=== PATIENT | male | born 1960 | race Caucasian/White ===

== ENCOUNTER 2022-05-05 10:25 | Emergency (ER) | payer OTHER, SELFPAY ==
[2022-05-05 10:33] VITALS: BP 147/88; PULSE 71; RESP 18; TEMP 36.2; O2SAT 95; BMI 29.4
--- NOTE | 2022-05-05 11:21 | ED_ITS ---
HPI - Wound/Laceration General Chief Complaint: Laceration/Wound Stated Complaint: Lac side of left hand Time Seen by Provider: 05/05/22 11:05 History of Present Illness HPI narrative: This 62-year-old male comes in with a laceration to his left hand. 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 He was making breakfast with a new set of knives in accidentally cut into his left hand. He has a 1.5 cm linear laceration over the lateral aspect of the left hand at the MP joint of the little finger. He is taking Coumadin because he has a mechanical heart valve. The bleeding is persistent. His last tetanus was 2 years ago. Related Data Previous Rx's Medication Instructions Recorded warfarin 6 mg tablet 6 mg PO QDAY #60 tabs 04/19/22 Allergies Allergy/AdvReac Type Severity Reaction Status Date / Time Sulfa (Sulfonamide AdvReac Intermediate Verified 05/05/22 10:38 Antibiotics) Review of Systems Status of ROS: Reports: 10 or more systems reviewed and unremarkable except as noted in History and below Narrative: Constitutional: No fevers, no weight gain or loss. Eyes: No discharge. No vision changes. HENT: No congestion, no sore throat, no ear pain. Cardiovascular: No chest pain, no palpitations. Respiratory: No shortness of breath, no wheezes, no cough. Gastrointestinal: No abdominal pain, no vomiting, no diarrhea. Genitourinary: No dysuria, no hematuria. Musculoskeletal: Normal range of motion. Left hand laceration as described above. Skin: No rashes, no pruritis. Neurological: No dizziness, weakness, sensory change, speech change. Endo/Heme/Allergies: No bruising or bleeding. No polydipsia. Pysch: no suicidality, no anxiety, no insomnia. All other systems reviewed and are negative. PFSH PFSH Social History Smoking Status: Never smoker How often do you have a drink containing alcohol: monthly or less AUDIT-C Alcohol total score: 1 Non-prescribed substance use: denies use service: No Exam Narrative: Exam Narrative: Constitutional: Well-developed, well-nourished, no acute distress. HEENT: Normocephalic, atraumatic. Neck: Normal range of motion. Nontender. Supple. Heart: Intact distal pulses. Lungs: No chest discomfort. No wheezes, rhonchi, or rales. Abdomen: Nontender. Back: Normal range of motion. Extremities: Normal range of motion. 1.5 cm linear laceration near the MP joint of the left little finger. Skin: Intact. No rash. Warm. No erythema or pallor. Neurologic: No altered sensation. No weakness. Alert and oriented. Psychiatric: No suicidality. No anxiety or depression. No insomnia. Nursing notes and vitals signs are reviewed. Const: Vital Signs, click to edit/add: Vital Signs - 24 hr 05/05/22 10:33 Temperature 97.2 F L Pulse Rate [Pulse Oximeter] 71 Respiratory Rate 18 Blood Pressure [Ri ght Upper Arm] 147/88 H Pulse Oximetry 95 Oxygen Delivery Me thod Room Air Course Vital Signs Vital signs: Initial Vital Signs Temperature 97.2 F L 05/05/22 10:33 Temperature Source Temporal Artery Scan 05/05/22 10:33 Pulse Rate 71 05/05/22 10:33 Pulse Rhythm 05/05/22 10:33 Pulse Strength 0+ Absent 05/05/22 10:33 Respiratory Rate 18 05/05/22 10:33 Blood Pressure 147/88 H 05/05/22 10:33 Blood Pressure Mean 107 05/05/22 10:33 Blood Pressure Position Sitting 05/05/22 10:33 Pulse Oximetry 95 05/05/22 10:33 Oxygen Delivery Method 05/05/22 10:33 Vital Signs Temperature 97.2 F L 05/05/22 10:33 Pulse Rate 71 05/05/22 10:33 Respiratory Rate 18 05/05/22 10:33 Blood Pressure 147/88 H 05/05/22 10:33 Pulse Oximetry 95 05/05/22 10:33 Oxygen Delivery Method 05/05/22 10:33 Temperature 97.2 F L 05/05/22 10:33 Pulse Rate 71 05/05/22 10:33 Respiratory Rate 18 05/05/22 10:33 Blood Pressure 147/88 H 05/05/22 10:33 Pulse Oximetry 95 05/05/22 10:33 Oxygen Delivery Method 05/05/22 10:33 MDM - Wound/Laceration MDM Narrative Medical decision making narrative: This patient continues to ooze a little bit of blood from this wound as he is on Coumadin with a more aggressive INR goal due to his mechanical heart valve. It seems best to repair this wound with sutures therefore. After receiving anesthesia with 1% lidocaine with epinephrine, 3 sutures were placed using 4.0 Ethilon suture. These were placed in interrupted fashion and when completed the bleeding has stopped. Instructions were given regarding wound care and the need for suture removal in 7-10 days. 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 Follow up for suture removal in 7-10 days. Return if worsening. Prescriptions: No Action warfarin 6 mg tablet 6 mg PO QDAY Qty: 60 0RF Protocol: Dose Management Condition: Tuesday Dose/Route: 6 % Instruction: 1 x 6 % tablet Condition: Tuesday Dose/Route: 6 % Instruction: 1 x 6 % tablet Condition: Tuesday Dose/Route: 9 % Instruction: 1.5 x 6 % tablets Condition: Tuesday Dose/Route: 6 % Instruction: 1 x 6 % tablet Condition: Dose/Route: 6 % Instruction: 1 x 6 % tablet Condition: Tuesday Dose/Route: 6 % Instruction: 1 x 6 % tablet Condition: Tuesday Dose/Route: 6 % Instruction: 1 x 6 % tablet Protocol Text: Adjustment Start Date: 04/08/22 INR Value: 2.5 INR Date: 04/06/22 Recheck Date: 05/08/22 Follow Up/Referrals: Kumar Raymond MD [Primary Care Provider] - Stand Alone Forms: PresentationTubeth Info Instructions
== END 2022-05-05 11:30 | disposition home or self-care (01) ==
PROVIDERS: Emergency Provider Emergency Medicine Emergency Medical Services; PCP Family Medicine
DX: S61.217A Laceration without foreign body of left little finger without damage to nail, initial encounter (principal); W26.0XXA Contact with knife, initial encounter
CPT/HCPCS: 12001; 99283; 99284

== ENCOUNTER 2022-07-20 16:14 | Outpatient (CLI) | payer MEDICAID, SELFPAY ==
--- OUTSIDE RECORDS SUMMARY | 2022-07-20 14:19 | XMS_ITS | Clinical Summary ---
:1960 Author Organization [facility] [place] [address] Care Team Providers Name Role Phone Kumar Raymond MD Primary Care Provider Allergies Active Allergy Reactions Severity Noted Date Comments Cephalexin Rash 02/02/2013 Atorvastatin Arthralgia 11/19/2011 Paroxetine Tremors 07/08/2014 Sulfa (Sulfonamide Antibiotics) Hives 6 Sertraline Diaphoresis 07/08/2014 night sweats Medications Medication Sig Dispensed Refills Start Date End Date Status aspirin (ECOTRIN) 81 Take 1 tablet by 0 08/04/2015 Active mg enteric coated mouth once daily with tablet a meal. lovastatin (MEVACOR) Take 1 tablet by 90 tablet 3 04/08/2016 Active 40 mg mouth at bedtime. tabletIndications: Mixed hyperlipidemia LORazepam (ATIVAN) 1 TAKE 1 TABLET BY 20 tablet 0 05/13/2016 Active mg MOUTH EVERY 6 HOURS tabletIndications: IF NEEDED. Anxiety PARoxetine (PAXIL) Take 1 tablet by 90 tablet 3 06/14/2016 Active 40 mg mouth every morning. tabletIndications: Anxiety lisinopril TAKE ONE TABLET BY 60 tablet 0 11/18/2016 Active (PRINIVIL; ZESTRIL) MOUTH TWICE DAILY 20 mg tabletIndications: Essential hypertension with goal blood pressure less than 140/90 testosterone INJECT 1 ML 5 mL 3 03/07/2017 Acti ve enanthate INTRAMUSCULARLY ONCE (DELATESTRYL) 200 EVERY 2 WEEKS mg/mL injectionIndications : Low testosterone Active Problems Problem Noted Date Anxiety 04/08/2016 Alcohol abuse, in remission 04/08/2016 Dysthymia 01/26/2016 OCD (obsessive compulsive disorder) 03/10/2015 Chronic otitis media of both ears 03/10/2015 Adenomatous colon polyp 10/04/2014 Overview: Colonoscopy 09/2014 polyp repeat in 5 yea rs Fatty liver 08/02/2014 Coital headache 07/14/2012 Bicuspid aortic valve 07/14/2012 Low testosterone 11/19/2011 Vitamin D deficiency 11/19/2011 Prediabetes 11/19/2011 Osteoarthritis 11/05/2011 Unspecified essential hypertension 08/18/2007 Presbyopia 09/30/2006 Vitreous degeneration 09/30/2006 Other and unspecified hyperlipidemia 12/03/2005 Resolved Problems Problem Noted Date Resolved Date Alcohol abuse 03/10/2015 04/08/2016 Chest pain, unspecified 07/14/2012 01/22/2014 Headache(784.0) 07/14/2012 07/14/2012 Overview: Post-coital headaches noted. Abnormal tympanic membrane 11/05/2011 03/31/2015 Anxiety state, unspecified 12/03/2005 11/05/2011 Immunizations Name Administration Dates Next Due Influenza, IIV3 (Age >=3 years) 09/06/2003 Influenza, IIV4 08/04/2015, 09/02/2014 Tdap 09/17/2010 Family History Medical History Relation Name Comments Good Health Brother 2 Diabetes Father Cancer Maternal Grandmother ovarian. Genetic Mother Hypertension Mother Other Mother migraine Thyroid Disease Mother Good Health Sister 2 Relation Name Status Comments Brother 1 Alive Brother 2 Father Alive Maternal Grandmother Mother Alive Sister 1 Alive Sister 2 Social History Tobacco Use Types Packs/Day Years Used Date Former Smoker Cigarettes 1.5 20 Quit: 06/12/19 91 Smokeless Tobacco: Never Used Tobacco Cessation: Counseling Given: Yes Alcohol Use Standard Drinks/Week Comments No 30 (1 standard drink = 0.6 oz pure alcoh ol) Quit drinking 4 weeks ago. Alcohol Habits Answer Date Recorded How often do you have a drink containing Not asked alcohol? How many drinks containing alcohol do you Not asked have on a typical day when you are drinking? How often do you have six or more drinks on Not asked one occasion? Comment: Quit drinking 4 weeks ago. 09/02/2014 Sex Assigned at Date Recorded Not on file Obstetrics History Last Filed Vital Signs Vital Sign Reading Time Taken Comments Blood Pressure 106/76 04/08/2016 10:50 AM manual cuff CDT Pulse 62 04/08/2016 10:50 AM CDT Temperature 37.2 ??C (98.9 ??F) 04/08/2016 10:50 AM CDT Respiratory Rate 16 01/02/2016 11:13 AM CDT Oxygen Saturation 99% 04/08/2016 10:50 AM CDT Inhaled Oxygen Concentration - - Weight 87.8 kg (193 lb 9.6 oz) 04/08/2016 10:50 AM CDT Height 178.4 cm (5' 10.25) 04/08/2016 10:50 AM CDT Body Mass Index 27.58 04/08/2016 10:50 AM CDT Plan of Treatment Health Maintenance Due Date Last Done Comments COVID-19 vaccine series (#1) 1960 Hepatitis C screening for age 0704/02/1977 18-79 Zoster (shingles) series for age 0704/02/2009 50+ (1 of 2) Depression screening for age 12+ 10/13/2016 10/13/2015, , 09/22/2015 BMI (ht and wt on same day) for 04/08/2017 04/08/2016 age 18+ Colonoscopy through age 75 10/04/2019 10/04/2014, 5, 09/17/2010 Tetanus booster 09/17/2020 09/17/2010, 09/17/2010 Lipids for age 45-75 04/08/2021 04/08/2016, 03/22/2015, 01/22/2014, Additional history exists Influenza for age 50-64 05/13/2022 08/04/2015, 08/04/2015, 09/02/2014, Additional history exists Tdap Completed 09/17/2010 Results Not on filefrom Last 3 Months Insurance Payer Benefit Plan / Subscriber ID Effective Dates Phone Addre ss Type Group MEDICA MEDICA CHOICE [id number] 2018-Present [address] [address] [place] [address] [facility] [id number] 2017-Present [address] [place] [address] [phone] [id number] (Work) [employer] [facility] Employer 09/12/2000 ATTN A /P ADVANTAGE [employer] (Home) [address] [place] [address] [facility] Employer 09/12/2000 [facility] [employer] (Home) [address] [phone] [address] (Work) [facility] [place] [address] Advance Directives Latest Code Status on File Code Status Date Activated Date Inactivated Comments Full Code 06/24/2014 7:19 AM 06/24/2014 5:00 PM Care Teams Per Diem Registered Nurse Relationship Specialty Start Date End Date Kumar Raymond MD PCP - General Family Practice 11/17/171999 [place] [phone]
[2022-07-20 15:20] LABS: Albumin* 4.8 g/dL (3.3-5.0); Chloride* 103 mmol/L (96-114); Potassium* 4.5 mmol/L (3.6-5.1); Sodium* 138 mmol/L (135-149)
[2022-07-20 15:23] LABS: Alanine Aminotransferase* 26 U/L (4-50); Alkaline Phosphatase* 79 U/L (40-150); Aspartate Amino Transferase* 28 U/L (12-35); Bilirubin Total* 0.6 mg/dL (0.1-1.5); Blood Urea Nitrogen* 13 mg/dL (7-30); Calcium* 9.1 mg/dL (8.4-10.6); Carbon Dioxide* 26 mmol/L (20-32); Estimated Glomerular Filt Rate 85 ml/min; Glucose* 90 mg/dL (60-115); HDL Cholesterol* 51 mg/dL (>=40); Total Protein* 7.3 g/dL (6.0-8.3); Triglycerides* 209 mg/dL (40-149)
[2022-07-20 15:24] LABS: LDL Cholesterol Calculated 232 mg/dL (<100)
[2022-07-20 15:54] LABS: PSA Screen* 1.85 ng/mL (0.10-4.00)
[2022-07-20 16:05] LABS: Cholesterol* 346 mg/dL (90-199)
[2022-07-22 23:28] LABS: Sex Hormone Binding Globulin 45 nmol/L (19-76); Testosterone, Adult Male 310 ng/dL (300-720); Testosterone, Free Calculation 47 pg/mL (47-244); Testosterone, Percentage Free 1.5 % (1.6-2.9)
== END 2022-07-20 16:15 | disposition home or self-care (01) ==
PROVIDERS: PCP Family Medicine; Visit Provider Family Medicine
DX: E78.5 Hyperlipidemia, unspecified (principal); Z12.5 Encounter for screening for malignant neoplasm of prostate; Z13.9 Encounter for screening, unspecified
CPT/HCPCS: 80053; 80061; 84153; 84270; 84402; 84403

== ENCOUNTER 2023-06-26 18:23 | Emergency (ER) | payer MEDICAID, SELFPAY ==
[2023-06-26 18:43] VITALS: BP 147/77; PULSE 76; RESP 16; TEMP 36.9; O2SAT 95; BMI 31.6
--- NOTE | 2023-06-26 18:50 | CRLHL7_ITS ---
For Patients: As a result of the Century Cures Act, medical imaging exams and procedure reports are released immediately into your electronic medical record. You may view this report before your referring provider. If you have questions, please contact your health care provider. Indication: Fall Technique: Noncontrast head CT Comparison: Head CT 03/15/2021 Findings: Axial noncontrast images through the brain parenchyma demonstrates no acute intracranial hemorrhage or mass. No midline shift no abnormal extra-axial air or fluid collections are seen Skull and scalp are unremarkable. Impression: No acute intracranial hemorrhage or mass. Please note that all CT scans at this facility use dose modulation, iterative reconstruction, and/or weight-based dosing when appropriate to reduce radiation dose to as low as reasonably achievable. Dictated by Alyse Willis MD @ 06/26/2023 7:38:27 PM (Electronically Signed)
--- NOTE | 2023-06-26 19:50 | ED.GENADULT ---
HPI - General Adult General Chief complaint: Head Injury/Pain Stated complaint: head scan needed Time Seen by Provider: 06/26/23 18:43 History of Present Illness HPI narrative: 63-year-old male presenting today after slamming his head against an open car door about 9 hours ago. Patient is on Coumadin and he is quite concerned about the possibility of a head bleed. He states that his neck was sore after doing this as well. He has no difficulty moving his neck. He denies any changes in his vision or ringing in his ears. No slurred speech or neurologic deficits. No tingling of the upper extremities. He does have a very mild headache located at the top of his head where he bumped it. Does not have a diffuse headache. Related Data Previous Rx's Medication Instructions Recorded amitriptyline 10 mg tablet 20 mg (2 x 10 mg) PO .Bedtime #180 08/30/22 tabs bupropion HCl 150 mg 24 hr tablet, 150 mg PO DAILY #90 tabs 08/30/22 extended release celecoxib 200 mg capsule 200 mg PO QDAY #90 caps 08/30/22 fluoxetine 40 mg capsule 40 mg PO QAM #90 caps 08/30/22 ketoconazole 2 % topical cream 1 applic topical QDAY #60 grams 08/30/22 rosuvastatin 5 mg tablet 5 mg PO QDAY #90 tabs 08/30/22 warfarin 1 mg tablet 3 mg PO QWEEK #36 tabs 09/07/22 syringe with needle, safety 3 mL #100 ea 10/15/22 22 gauge x 1 1/2 (BD Integra Syringe) warfarin 6 mg tablet 6 mg PO QDAY #90 tabs 05/05/23 doxycycline monohydrate 100 mg 200 mg (2 x 100 mg) PO ONCE #2 caps 05/26/23 capsule testosterone enanthate 200 mg/mL 300 mg (1.5 mL) IM .Once a month 06/23/23 intramuscular oil #5 mL Allergies Allergy/AdvReac Type Severity Reaction Status Date / Time atorvastatin Allergy Mild Verified 05/26/23 17:52 sertraline Allergy Mild Anxiety Verified 05/26/23 17:52 cephalexin Allergy Unknown Unknown Verified 05/26/23 17:52 lisinopril Allergy Unknown Cough Verified 05/26/23 17:52 Sulfa (Sulfonamide AdvReac Intermediate Verified 05/26/23 17:52 Antibiotics) Review of Systems Status of ROS: Reports: 10 or more systems reviewed and unremarkable except as noted in History and below [facility] Medical History History of squamous cell carcinoma of skin ?Z85.828 - Personal history of other malignant neoplasm of skin (ICD-10) Encounter for screening for malignant neoplasm of prostate ?Z12.5 - Encounter for screening for malignant neoplasm of prostate (ICD-10) Surgical History History of placement of ear tubes ?Z96.22 - Myringotomy tube(s) status (ICD-10) History of cholecystectomy ?Z90.49 - Acquired absence of other specified parts of digestive tract (ICD-10) Social History Smoking Status: Former smoker How often do you have a drink containing alcohol: monthly or less AUDIT-C Alcohol total score: 1 Non-prescribed substance use: denies use Little interest or pleasure in doing things: more than half the days Feeling down, depressed, or hopeless: several days service: No Exam Narrative: Exam Narrative: Well-nourished well-developed patient in no acute distress. Alert and oriented x3. Answers questions appropriately. Mood and affect are appropriate. Thoughts are goal oriented and rational. No tangential or magical thinking noted. Patient speaks in full sentences without needing to catch his breath. HEENT: Normocephalic atraumatic. There is no evidence of trauma to the top of the scalp. Pupils are equally round reactive to light. Extraocular muscles are intact. Conjunctivae are moist without any icterus noted. Moist mucous membranes. Neck is soft without discomfort to palpation of the cervical spine. He has full range of motion flexion, extension, side way bending or rotation. Skin: Well perfused without any obvious rashes. Strength is 5/5 of the upper and lower extremities. Cranial nerves 3-12 are normal. There is no nystagmus either horizontally or vertically. Gait is normal. Const: Vital Signs, click to edit/add: Vital Signs - 24 hr 06/26/23 18:43 Temperature 98.4 F Pulse Rate [Pulse Oximeter] 76 Respiratory Rate 16 Blood Pressure [Ri ght Upper Arm] 147/77 H Pulse Oximetry 95 Oxygen Delivery Me thod Room Air Course Course ED Course: Head CT was without abnormality. Vital Signs Vital signs: Initial Vital Signs Temperature 98.4 F 06/26/23 18:43 Temperature Source Temporal Artery Scan 06/26/23 18:43 Pulse Rate 76 06/26/23 18:43 Respiratory Rate 16 06/26/23 18:43 Blood Pressure 147/77 H 06/26/23 18:43 Blood Pressure Mean 100 06/26/23 18:43 Blood Pressure Position Sitting 06/26/23 18:43 Pulse Oximetry 95 06/26/23 18:43 Oxygen Delivery Method Room Air 06/26/23 18:43 Vital Signs Temperature 98.4 F 06/26/23 18:43 Pulse Rate 76 06/26/23 18:43 Respiratory Rate 16 06/26/23 18:43 Blood Pressure 147/77 H 06/26/23 18:43 Pulse Oximetry 95 06/26/23 18:43 Oxygen Delivery Method Room Air 06/26/23 18:43 Temperature 98.4 F 06/26/23 18:43 Pulse Rate 76 06/26/23 18:43 Respiratory Rate 16 06/26/23 18:43 Blood Pressure 147/77 H 06/26/23 18:43 Pulse Oximetry 95 06/26/23 18:43 Oxygen Delivery Method Room Air 06/26/23 18:43 Medical Decision Making MDM Narrative Medical decision making narrative: 63-year-old male contusion to the head. We discussed symptomatic treatment reasons for follow-up. Imaging Data CT scan - head: Attestation: I have reviewed the pertinent imaging results. Radiologist's impression: Noncontrast head CT Comparison: Head CT 03/15/2021 Findings: Axial noncontrast images through the brain parenchyma demonstrates no acute intracranial hemorrhage or mass. No midline shift no abnormal extra-axial air or fluid collections are seen Skull and scalp are unremarkable. Impression: No acute intracranial hemorrhage or mass. Discharge Plan Discharge Clinical Impression: Contusion of head Patient Disposition: Home, Self-Care Condition: Stable Additional Instructions: Okay to use heat to the neck of the neck become sore. Okay to ice of the head if that continues to be sore. Do not apply heat or ice directly to skin. Follow-up with primary care provider if you feel that things are not improving over the next week. Prescriptions: No Action rosuvastatin 5 mg tablet 5 mg PO QDAY Qty: 90 3RF amitriptyline 10 mg tablet 20 mg PO .Bedtime Qty: 180 3RF bupropion HCl 150 mg tablet extended release 24 hr 150 mg PO DAILY Qty: 90 3RF celecoxib 200 mg capsule 200 mg PO QDAY Qty: 90 3RF fluoxetine 40 mg capsule 40 mg PO QAM Qty: 90 3RF ketoconazole 2 % cream 1 applic topical QDAY Qty: 60 2RF doxycycline monohydrate 100 mg capsule 200 mg PO ONCE Qty: 2 0RF warfarin 1 mg tablet 3 mg PO QWEEK Qty: 36 0RF Protocol: Dose Management Condition: Tuesday Dose/Route: 6 mg Instruction: 1 x 6 mg tablet Condition: Tuesday Dose/Route: 6 mg Instruction: 1 x 6 mg tablet Condition: Tuesday Dose/Route: 9 mg Instruction: 3 x 1 mg tablets, 1 x 6 mg tablet Condition: Tuesday Dose/Route: 6 mg Instruction: 1 x 6 mg tablet Condition: Dose/Route: 6 mg Instruction: 1 x 6 mg tablet Condition: Tuesday Dose/Route: 6 mg Instruction: 1 x 6 mg tablet Condition: Tuesday Dose/Route: 9 mg Instruction: 3 x 1 mg tablets, 1 x 6 mg tablet Protocol Text: Adjustment Start Date: Tuesday06/07/23 INR Value: 2.4 INR Date: 06/07/23 Recheck Date: 06/21/23 Rx Instructions: Take in addition to 6 mg tablet, for a total of 9 mg once a week. (DME) BD Integra Syringe 3 mL 22 gauge x 1 1/2 syringe See Rx Instructions .Route Qty: 100 0RF Rx Instructions: Use as directed with monthly injections warfarin 6 mg tablet 6 mg PO QDAY Qty: 90 0RF Protocol: Dose Management Condition: Tuesday Dose/Route: 6 mg Instruction: 1 x 6 mg tablet Condition: Tuesday Dose/Route: 6 mg Instruction: 1 x 6 mg tablet Condition: Tuesday Dose/Route: 9 mg Instruction: 3 x 1 mg tablets, 1 x 6 mg tablet Condition: Tuesday Dose/Route: 6 mg Instruction: 1 x 6 mg tablet Condition: Dose/Route: 6 mg Instruction: 1 x 6 mg tablet Condition: Tuesday Dose/Route: 6 mg Instruction: 1 x 6 mg tablet Condition: Tuesday Dose/Route: 9 mg Instruction: 3 x 1 mg tablets, 1 x 6 mg tablet Protocol Text: Adjustment Start Date: Tuesday06/07/23 INR Value: 2.4 INR Date: 06/07/23 Recheck Date: 06/21/23 Rx Instructions: Patient to take 6 mg by mouth daily, 9mg on Tuesdays and Saturdays testosterone enanthate 200 mg/mL oil 300 mg IM .Once a month Qty: 5 4RF Follow Up/Referrals: Kumar Raymond MD [Primary Care Provider] - Stand Alone Forms: [employer] Info Instructions
== END 2023-06-26 20:03 | disposition home or self-care (01) ==
PROVIDERS: Emergency Provider Family Medicine; PCP Family Medicine
DX: S00.93XA Contusion of unspecified part of head, initial encounter (principal); W22.8XXA Striking against or struck by other objects, initial encounter
CPT/HCPCS: 70450; 99283; 99284

== ENCOUNTER 2023-10-03 07:30 | Outpatient (CLI) | payer MEDICAID, SELFPAY ==
--- OUTSIDE RECORDS SUMMARY | 2023-10-04 07:13 | XMS_ITS | Clinical Summary ---
Author Name Unknown Organization [facility] Address [place], [place] [address] Care Team Providers Care Nutrition Representative Name Role Phone Kumar Raymond MD Primary Care Provider [phone] Allergies Active Allergy Reactions Criticality Noted Date Comments Cephalexin Rash 02/02/2013 Atorvastatin Arthralgia 11/19/2011 Paroxetine Tremors 07/08/2014 Sulfa (Sulfonamide Antibiotics) Hives 11/11 Sertraline Diaphoresis 07/08/2014 night sweats Medications Medication Sig Dispensed Refills Start Date End Date Status aspirin (ECOTRIN) 81 mg enteric coated tablet Take 1 tablet by mouth once daily with a meal. 0 08/04/2015 Active lovastatin (MEVACOR) 40 mg tabletIndications:M ixed hyperlipidemia Take 1 tablet by mouth at bedtime. 90 tablet 3 04/08/2016 Active LORazepam (ATIVAN) 1 mg tabletIndications:A nxiety TAKE 1 TABLET BY MOUTH EVERY 6 HOURS IF NEEDED. 20 tablet 0 05/13/2016 Active PARoxetine (PAXIL) 40 mg tabletIndications:A nxiety Take 1 tablet by mouth every morning. 90 tablet 3 06/14/2016 Active lisinopril (PRINIVIL; ZESTRIL) 20 mg tabletIndications:E ssential hypertension with goal blood pressure less than 140/90 TAKE ONE TABLET BY MOUTH TWICE DAILY 60 tablet 0 11/18/2016 Active testosterone enanthate (DELATESTRYL) 200 mg/mL injectionIndication s:Low testosterone INJECT 1 ML INTRAMUSCULARLY ONCE EVERY 2 WEEKS 5 mL 3 03/07/2017 Active Active Problems Problem Noted Date Diagnosed Date Anxiety 04/08/2016 Alcohol abuse, in remission 04/08/2016 Dysthymia 01/26/2016 OCD (obsessive compulsive disorder) 03/10/2015 Chronic otitis media of both ears 03/10/2015 Adenomatous colon polyp 10/04/2014 Overview: Colonoscopy 09/2014 polyp repeat in 5 years Fatty liver 08/02/2014 Coital headache 07/14/2012 Bicuspid aortic valve 07/14/2012 Low testosterone 11/19/2011 Vitamin D deficiency 11/19/2011 Prediabetes 11/19/2011 Osteoarthritis 11/05/2011 Unspecified essential hypertension 08/18/2007 Presbyopia 09/30/2006 Vitreous degeneration 09/30/2006 Other and unspecified hyperlipidemia 12/03/2005 Resolved Problems Problem Noted Date Diagnosed Date Resolved Date Alcohol abuse 03/10/2015 04/08/2016 Chest pain, unspecified 07/14/201201/10 Headache(784.0) 07/14/2012 07/14/2012 Overview: Post-coital headaches noted. Abnormal tympanic membrane 11/05/2011 0 03/31/2015 Anxiety state, unspecified 12/03/2005 0 11/05/2011 Immunizations Name Administration Dates Next Due Influenza, IIV3 (Age >=3 years) 09/06/2003 Influenza, IIV4 08/04/2015,09/02/2014 Tdap 09/17/2010 Family History Medical History Relation Name Comments Good Health Brother 2 Diabetes Father Cancer Maternal Grandmother ovarian . Genetic Mother Hypertension Mother Other Mother migraine Thyroid Disease Mother Good Health Sister 2 Relation Name Status Comments Brother 1 Alive Brother 2 Father Alive Maternal Grandmother Mother Alive Sister 1 Alive Sister 2 Social History Tobacco Use Types Packs/Day Years Used Date Smoking Tobacco: Former Cigarettes 1.5 20 1 - 06/12/1991 Smokeless Tobacco: Never Tobacco Cessation:Counseling Given: Yes Alcohol Use Standard Drinks/Week Comments No 30 (1 standard drink = 0.6 oz pu re alcohol) Quit drinking 4 weeks ago. Sex and Gender Information Value Date Recorded Sex Assigned at Not on file Gender Identity Not on file Sexual Orientation Not on file Obstetrics History Last Filed Vital Signs Vital Sign Reading Time Taken Comments Blood Pressure 106/76 04/08/2016 10:50 AM CDT manual cuff Pulse 62 04/08/2016 10:50 AM CDT Temperature 37.2 ??C (98.9 ??F) 04/08/2016 1 0:50 AM CDT Respiratory Rate 16 01/02/2016 11:1 3 AM CDT Oxygen Saturation 99% 04/08/2016 10: 50 AM CDT Inhaled Oxygen Concentration - - Weight 87.8 kg (193 lb 9.6 oz) 04/08/20 16 10:50 AM CDT Height 178.4 cm (5' 10.25) 04/08/2016 10:50 AM CDT Body Mass Index 27.58 04/08/2016 10:50 AM CDT Plan of Treatment Health Maintenance Due Date Last Done Comments COVID-19 vaccine series (#1) 1959 HIV for age 15-65 1974 Hepatitis C screening for age 18-79 1977 Zoster (shingles) series for age 50+ (1 of 2) 2009 Depression screening for age 12+ 10/13/2016 10/13/2015, 10/06/2015, 09/22/2015 BMI (ht and wt on same day) for age 18+ 04/08/2017 04/08/2016 Colonoscopy through age 75 10/04/201910/04, 10/03/2014, 09/17/2010 Tetanus booster 09/17/2020 09/17/2010, 09/17/2010 Lipids for age 45-75 04/08/2021 04/08/2016, 03/22/2015, 01/22/2014, Additional history exists Influenza for age 50-64 05/13/2023 08/04/20 15, 08/04/2015, 09/02/2014, Additional history exists Tdap Completed 09/17/2010 Pneumococcal series for age 6-64 Aged Out No longer eligible based on patient's age to complete this topic Advance Directives Latest Code Status on File Code Status Date Activated Date Inactivated Comments Full Code 06/24/2014 7:19 AM 06/24/2014 5:00 PM Care Teams Nutrition Representative Relationship Specialty Start Date End Date Kumar Raymond MD [address] [place] [id number] PCP - General Family Practice 11/17/17
== END 2023-10-03 07:31 | disposition home or self-care (01) ==
LOC: NFLDREF 10-04 07:11
PROVIDERS: PCP Family Medicine; Referring Provider Family Medicine; Visit Provider Family Medicine
DX: E78.5 Hyperlipidemia, unspecified (principal); Z12.5 Encounter for screening for malignant neoplasm of prostate; E29.1 Testicular hypofunction
CPT/HCPCS: 80053; 80061; 84403; G0103

== ENCOUNTER 2023-11-28 09:48 | Outpatient (CLI) | payer MEDICAID, SELFPAY ==
--- NOTE | 2023-11-28 12:02 | W.ANESCHARGE ---
Anesthesia Charges Start Date/Time Anesthesia Start Date: 11/28/23 Anesthesia Start Time: 11:32 Stop Date/Time Anesthesia Stop Date: 11/28/23 Anesthesia Stop Time: 12:06
--- NOTE | 2023-11-28 12:48 | W.ANESCHARGE ---
Anesthesia Charges Start Date/Time Anesthesia Start Date: 11/28/23 Anesthesia Start Time: 11:32 Stop Date/Time Anesthesia Stop Date: 11/28/23 Anesthesia Stop Time: 12:06
== END 2023-11-28 09:49 | disposition home or self-care (01) ==
LOC: OP CLINIC 09:48
PROVIDERS: PCP Family Medicine; Visit Provider Surgery
DX: Z12.11 Encounter for screening for malignant neoplasm of colon (principal); Z86.010 Personal history of colon polyps
CPT/HCPCS: 00811; 00812; 45378

== ENCOUNTER 2024-02-22 10:32 | Outpatient (CLI) | payer MEDICAID, SELFPAY ==
--- OUTSIDE RECORDS SUMMARY | 2024-02-26 15:57 | XMS_ITS | Referral Summary ---
Author Organization [facility] Address [address] [place] [address] Care Team Providers Care Aviation Operations Specialist Name Role Phone Elsewhere, Pcp Primary Care Provider Unavailabl e Source Comments Patient records contain information from all sites at [facility]. For routine questions regarding patient records, call [phone] during business hours, M-F 8:00 AM - 5:00 PM Central Time. Record requests for emergency care only can be directed to [phone] at any time.[facility] Encounters Date Type Department Care Team Description 02/10/2024 Orders Only Department of Cardiovascular Diseases in [address] [phone] Mckinley Loredo M.D. 01/18/2024 1:45 PM CDT Office Visit Department of Cardiovascular Diseases in [address] [phone] Mckinley Loredo M.D. Replace Aorta With Conduit Prosthetic Valve (Primary Dx) Discharge Disposition: Home or Self Care from Last 3 Months Allergies Active Allergy Reactions Criticality Noted Date Comments Atorvastatin Myalgia 11/19/2011 Cephalexin Hives (Reselect Reaction) 07/19/2017 Lisinopril Cough 10/10/2023 Sertraline Other (see comments) 07/08/2014 night sweats Sulfa (Sulfonamide Antibiotics) Hives (Reselect Reaction) 12/03/2005 Medications Medication Sig Dispensed Refills Start Date End Date Status buPROPion XL (WELLBUTRIN XL) 150 mg 24 hr tablet Take 150 mg by mouth every morning. 1 01/12/2019 Active testosterone enanthate (DELATESTRYL) 200 mg/mL injection Inject 200 mg intramuscularly every 14 (fourteen) days. 2 11/04/2018 Active amoxicillin (AMOXIL) 500 mg capsuleIndicatio ns:Replace Aorta With Conduit Prosthetic Valve Take 4 caps (2000 mg) 1 hour prior to procedure. 12 capsule 1 04/16/2020 Active amitriptyline (ELAVIL) 10 mg tablet TAKE 1 TABLET BY MOUTH NIGHTLY AND INCREASE TO 2 TABLETS NIGHTLY AFTER 1 WEEK NEEDED FOR INSOMNIA 07/16/2020 Active FLUoxetine (PROzac) 20 mg capsule Take 60 mg by mouth daily. 07/29/2020 Active warfarin (COUMADIN) 6 mg tablet TAKE INSTRUCTED HEAD 6 MG, M 9 MG, TU 6 MG, W 6 MG, TH 9 MG, F 6 MG, SA 6 MG 06/05/2020 Active amitriptyline (ELAVIL) 10 mg tablet Take 20 mg by mouth daily. 10/10/2023 Active rosuvastatin (CRESTOR) 10 mg tablet Take 10 mg by mouth daily. 10/10/2023 Active warfarin (JANTOVEN) 6 mg tablet Take 3 mg by mouth. 9 mg Sat and Tues, 6 mg all other days 08/09/2023 Active buPROPion XL (Wellbutrin XL) 150 mg 24 hr tablet Take 150 mg by mouth daily. 10/10/2023 Active celecoxib (CeleBREX) 200 mg capsule Take 200 mg by mouth daily. 10/10/2023 Active testosterone enanthate (DELATESTRYL) 200 mg/mL injection Inject 1,000 mg intramuscularly every 30 (thirty) days. 10/10/2023 Active FLUoxetine (PROzac) 40 mg capsule Take 40 mg by mouth daily. 10/10/2023 Active omeprazole (PriLOSEC) [address] capsule Take 20 mg by mouth every morning before breakfast. Active hydroCHLOROthiaz josef (HYDRODIURIL) 25 mg tablet Take 1 tablet (25 mg total) by mouth daily. 30 tablet 11 01/18/2024 Active amLODIPine (NORVASC) 5 mg tablet Take 1 tablet (5 mg total) by mouth daily. 90 tablet 3 02/10/2024 5 Active Active Problems Problem Noted Date Diagnosed Date Eustachian Tube Disorder Bilateral 09/19/2019 Atelectatic Tympanic Membrane Right 09/19/2019 Cholesteatoma Left 07/17/2019 Overview: Added automatically from request for surgery [id number] Palpitations 06/25/2019 Obstructive Sleep Apnea Adult 05/31/2019 Dysfunction Erectile 05/31/2019 Deconditioned 05/31/2019 Anticoagulant Therapy 03/18/2019 Overview: INR goal: 2.0 - 3.0 Warfarin duration and indication: Aortic mechanical valve replacement requires life-long anticoagulation therapy. After 3 months, however, you can reduce your INR goal to 1.5-2.5. This needs to be discussed with your primary care provider/electrical engineering manager to rule out contraindications before changing the INR goal. Replace Aorta With Conduit Prosthetic Valve 01/2019 Overview: 03/16/[address] Espinoza Aortic root replacement using 25-millimeter On-X sinus of Valsalva mechanical valve conduit with left and right coronary button transfer. Resolved Problems Problem Noted Date Diagnosed Date Resolved Date Stenosis Aortic Valve Acquired 03/16/2019 03/18/2019 Social History Tobacco Use Types Packs/Day Years Used Date Smoking Tobacco: Former Cigarettes Q uit: 1990 Smokeless Tobacco: Never Tobacco Cessation:Counseling Given: Not Answered Alcohol Use Standard Drinks/Week Comments Not Currently 0 (1 standard drink = 0.6 oz pur e alcohol) 1 wine per month [employer] Utilities Answer Date Recorded In the past 12 months has [employer], gas, oil, or water [employer] threatened to shut off services in your home? No 10/24/2023 Social Connection and Isolation Panel [NHANES] A nswer Date Recorded In a typical week, how many times do you talk on the phone with family, friends, or neighbors? Twice a week 03/06/2020 Frequency of Social Gatherings with Friends and Family Not on file 03/06/2020 Attends Synagogue Services Not on file 03/06 Active Member of Clubs or Organizations Not on f ile 03/06/2020 Attends Club or Organization Meetings Not on yaquelin e 03/06/2020 Marital Status Not on file 03/06/2020 AUDIT-C Answer Date Recorded Frequency of Alcohol Consumption Monthly or less 03/05/2019 Average Number of Drinks 1 or 2 019 Frequency of Binge Drinking Never 02/11 Overall Financial Resource Strain (CARDIA) Answe r Date Recorded How hard is it for you to pa y for the very basics like food, housing, medical care, and heating? Somewhat hard 03/06/2020 [facility] [place] [facility] Occupational Stress Questionnaire Answer Date Recorded Do you feel stress - tense, restless, nervous, or anxious, or unable to sleep at night because your mind is troubled all the time - these days? Very much 03/06/2020 Exercise Vital Sign Answer Date Recorde d On average, how many days pe r week do you engage in moderate to strenuous exercise (like a brisk walk)? 3 days 10/24/2023 On average, how many minutes do you engage in exercise at this level? 30 min 10/24/2023 Hunger Vital Sign Answer Date Recorded Within the past 12 months, y ou worried that your food would run out before you got the money to buy more. Never true 10/24/19 Within the past 12 months, t he food you bought just didn't last and you didn't have money to get more. Never true 10/24/2023 PRAPARE - Transportation Answer Date Re corded In the past 12 months, has l ack of transportation kept you from medical appointments or from getting medications? No 10/13 In the past 12 months, has l ack of transportation kept you from meetings, work, or from getting things needed for daily living? No 10/24/2023 Nutrition Answer Date Recorded On average, how many serving s of fruits and vegetables do you eat per day (serving size is equal to 1 cup or approximately the size of a tennis ball)? 0-2 10/24/2023 Dental Answer Date Recorded Dental: Regular Dentist Yes 10/24/19 Employment Answer Date Recorded Employment status Retired 10/24/2023 Housing Stability Answer Date Recorded What is your living situation today? [facility] have [facility] place to live 10/24/2023 Education Answer Date Recorded What is the highest level of school you have completed or the highest degree you have received? Associate degree: occupational, technical, or vocational program 03/06/2020 Sex and Gender Information Value Date Recorded Sex Assigned at Male 07/17/2019 7:45 AM IMAGING TECHNICIAN Gender Identity Male 03/05/2019 1:37 PM CDT Sexual Orientation Choose not to disclose 2018 7:45 AM IMAGING TECHNICIAN Last Filed Vital Signs Vital Sign Reading Time Taken Comments Blood Pressure 161/96 01/18/2024 1:36 PM CDT Pulse 70 01/18/2024 1:34 PM CDT Temperature 36.4 ??C (97.5 ??F) 01/18/2024 1:34 PM CD T Respiratory Rate 16 08/13/2020 1:30 PM IMAGING TECHNICIAN Oxygen Saturation 94% 01/18/2024 1:34 PM CDT Inhaled Oxygen Concentration - - Weight 96.6 kg (212 lb 15.4 oz) 01/18/2024 1:34 PM CDT Height 176 cm (5' 9.29) 08/13/2020 1:30 PM IMAGING TECHNICIAN Body Mass Index 31.19 08/13/2020 1:30 PM IMAGING TECHNICIAN Plan of Treatment Upcoming Encounters Date Type Department Care Team (Late st Contact Info) Description 03/05/2024 9:40 AM CDT Appointment Department of Laboratory Medicine in [address] [phone] Mckinley Loredo M.D. [address] [place] [phone] Medical Devices Implanted Type Area Scratch Finisher Device Identifier Shelf Expiration Date Model / Serial / Lot Vlv Aort [facility] 25 - [id number] - [id number] Implanted:Qty : 1 on 03/16/2019 by Goran Espinoza M.D. at [facility] Cardiac Valve Prosthesis Left: Heart [employer] 12/11/2021 ONXAAP-[id number] 5 / [id number] / Description:Aortic Valve Pos ition (Composite Graft included) Tb Vnt Drv Twin 1.27x1.37x4.5 - [id number] Implanted:Qty : 1 on 08/28/2019 by Peter Spear M.D. at [facility] Ear Tubes (e.g. PE Tubes) [employer] Eliza [id number] / / Tb Vnt Drv Twin 1.27x1.37x4.5 - [id number] Implanted:Qty : 1 on 08/28/2019 by Peter Spear M.D. at [facility] Ear Tubes (e.g. PE Tubes) [facility] Eliza [id number] / / Sut Fast Crk Qck Ld Sut Fast - [id number] Implanted:Qty : 6 on 03/16/2019 by Goran Espinoza M.D. at [facility] Hardware e.g. pins/screws/r ods Left: Heart [employer] [id number] / / Description:W/ Aortic Valve Prosthetic Sut Fast Crk Qck Ld Sut Fast - [id number] Implanted:Qty : 6 on 03/16/2019 by Goran Espinoza M.D. at [facility] Hardware e.g. pins/screws/r ods Left: Heart [employer] [id number] / / Description:W/ Aortic Valve Prosthetic Dev Crk Sut Blunt Crv - [id number] Implanted:Qty : 1 on 03/16/2019 by Goran Espinoza M.D. at [facility] Hardware e.g. pins/screws/r ods Left: Heart [employer] [id number] 12/10/2020 [id number] / / [id number] Description:W/ Aortic Valve Prosthetic Dev Crk Sut Blunt Crv - [id number] Implanted:Qty : 1 on 03/16/2019 by Goran Espinoza M.D. at [facility] Hardware e.g. pins/screws/r ods Left: Heart [employer] [id number] 12/10/2020 [id number] / / [id number] Description:W/ Aortic Valve Prosthetic Dev Crk Sut Blunt Crv - [id number] Implanted:Qty : 1 on 03/16/2019 by Goran Espinoza M.D. at [facility] Hardware e.g. pins/screws/r ods Left: Heart [employer] [id number] 12/10/2020 [id number] / / [id number] Description:W/ Aortic Valve Prosthetic Procedures Procedure Name Priority Date/Time Associated Diagnosis Comments BASIC METABOLIC PANEL, S/P Routine 03/21/2019 8:08 AM CDT from Last 3 Months or Most Recently Relevant to Health Maintenance Results * (ABNORMAL) BMP (Basic Metabolic Panel) (03/21/2019 8:08 AM CDT) Potassium, S 4.2 3.6 - 5.2 mmol/L 03/21/2019 10:15 AM CDT Sodium, S 137 135 - 145 mmol/L 03/21/2019 10:15 AM CDT Chloride, S 90(L) 98 - 107 mmol/L 03/21/2019 10:15 AM CDT Bicarbonate, S 33(H) 22 - 29 mmol/L 03/21/2019 10:15 AM CDT Anion Gap 14 7 - 15 03/21/2019 10:15 AM CDT BUN (Blood Urea Nitrogen), S 23 8 - 24 mg/dL 03/21/2019 10:15 AM CDT Creatinine 1.29 0.74 - 1.35 mg/dL 03/21/2019 10:15 AM CDT eGFR-Non Black/ 60 >=60 mL/min/BSA 03/21/2019 10:15 AM CDT Comment: ----ADDITIONAL INFORMATION---- Estimated GFR calculated using the 2009 CKD_EPI creatinine equation. eGFR-Black/Afric an Eritrean 70 >=60 mL/min/BSA 03/21/2019 10:15 AM CDT Comment: ----ADDITIONAL INFORMATION---- Estimated GFR calculated using the 2009 CKD_EPI creatinine equation. Calcium, Total, S 8.8 8.6 - 10.0 mg/dL 03/21/2019 10:15 AM CDT Glucose, S 124 70 - 140 mg/dL 03/21/2019 10:15 AM CDT Blood (Blood, Arterial) 03/21/2019 8:08 AM CDT 03/21/2019 8:42 AM CDT Alcira Cordon APRN C.N.P., M.S.N. LAB BLOOD ADD-ON [place] [address] [address] [place] [phone], [facility] from Last 3 Months or Most Recently Relevant to Health Maintenance Advance Directives For more information, please contact: [phone] * Full Code (Latest Code Status on File) Date Activated Date Inactivated Comments 03/16/2019 1:51 PM 03/21/2019 3:22 PM Question Answer Comments Full Code: Discussed Care Teams Aviation Operations Specialist Relationship Specialty Start Date End Date Elsewhere, Pcp PCP - General Internal Medicine 03/21/19
--- OUTSIDE RECORDS SUMMARY | 2024-02-26 15:57 | XMS_ITS | Encounter Summary ---
Author Organization [facility] Address [address] [place] [phone] Care Team Providers Care Customer Supply Coordinator Name Role Phone Elsewhere, Pcp Primary Care Provider Unavailabl e Encounter Details Date Type Department Care Team (Late st Contact Info) Description 02/10/2024 Orders Only Department of Cardiovascular Diseases in [place], [place] [address] [place] [phone] Mckinley Loredo M.D. [address] [place] [phone] Social History Tobacco Use Types Packs/Day Years Used Date Smoking Tobacco: Former Cigarettes Q uit: 1990 Smokeless Tobacco: Never Alcohol Use Standard Drinks/Week Comments Not Currently 0 (1 standard drink = 0.6 oz pur e alcohol) 1 wine per month [facility] Utilities Answer Date Recorded In the past 12 months has [facility] [employer], gas, oil, or water [employer] threatened to shut off services in your home? No 10/24/2023 Social Connection and Isolation Panel [NHANES] A nswer Date Recorded In a typical week, how many times do you talk on the phone with family, friends, or neighbors? Twice a week 03/06/2020 Frequency of Social Gatherings with Friends and Family Not on file 03/06/2020 Attends Judaism Services Not on file 03/06 Active Member [...] medical care, and heating? Somewhat hard 03/06/2020 [facility] - Occupational Stress Questionnaire Answer Date Recorded [...] your living situation today? I have a [facility] place to live 10/24/2023 Education Answer Date Recorded What is the highest level of school you have completed or the highest degree you have received? Associate degree: occupational, technical, or vocational program 03/06/2020 Sex and Gender Information Value Date Recorded Sex Assigned at Male 07/17/2019 7:45 AM TECHNICIAN ANATOMIC PATHOLOGY Gender Identity Male 03/05/2019 1:37 PM CDT Sexual Orientation Choose not to disclose 2018 7:45 AM TECHNICIAN ANATOMIC PATHOLOGY documented as of this encounter Plan of Treatment Upcoming Encounters Date Type Department Care Team (Late st Contact Info) Description 03/05/2024 9:40 AM CDT Appointment Department of Laboratory Medicine in [address] [phone] Mckinley Loredo M.D. [address] [place] [phone] documented as of this encounter Visit Diagnoses Not on filedocumented in this encounter Care Teams Customer Supply Coordinator Relationship Specialty Start Date End Date Elsewhere, Pcp PCP - General Internal Medicine 03/21/19 documented as of this encounter
--- OUTSIDE RECORDS SUMMARY | 2024-02-26 15:57 | XMS_ITS ---
Author Organization [facility] Address [address] [place] [address] Care Team Providers Care Interior Plant Caretaker Name Role Phone Unavailable Unavailable Unavailable Surgery Details Not on file Complications Check Surgery Details section. Procedure Estimated Blood Loss Check Surgery Details section. Procedure Findings Check Surgery Details section. Procedure Specimens Taken Check Surgery Details section.
--- OUTSIDE RECORDS SUMMARY | 2024-02-26 15:57 | XMS_ITS | Clinical Summary ---
Author Organization [facility] Address [address] [place] [address] Care Team Providers Care Production Technician Name Role Phone Elsewhere, Pcp Primary Care Provider Unavailabl e Source Comments Patient records contain information from all sites at [facility]. For routine questions regarding patient records, call [phone] during business hours, M-F 8:00 AM - 5:00 PM Central Time. Record requests for emergency care only can be directed to [phone] at any time.[facility] Allergies Active Allergy Reactions Criticality Noted Date [...] Overview: Added automatically from request for surgery [id number] Palpitations 06/25/2019 Obstructive Sleep Apnea Adult 05/31/2019 Dysfunction Erectile 05/31/2019 Deconditioned 05/31/2019 Anticoagulant Therapy 03/18/2019 Overview: INR goal: 2.0 - 3.0 Warfarin duration and indication: Aortic mechanical valve replacement requires life-long anticoagulation therapy. After 3 months, however, you can reduce your INR goal to 1.5-2.5. This needs to be discussed with your primary care provider/donkey ride operator to rule out contraindications before changing the INR goal. Replace Aorta With Conduit Prosthetic Valve 01/2019 Overview: 03/16/[address] Espinoza Aortic root replacement using 25-millimeter On-X sinus of Valsalva mechanical valve conduit with left and right coronary button transfer. Resolved Problems Problem Noted Date Diagnosed Date Resolved Date Stenosis Aortic Valve Acquired 03/16/2019 03/18/2019 Encounters Date Type Department Care Team Description 02/10/2024 Orders Only Department of Cardiovascular Diseases in [address] [phone] Mckinley Loredo M.D. 01/18/2024 1:45 PM CDT Office Visit Department of Cardiovascular Diseases in [address] [phone] Mckinley Loredo M.D. Replace Aorta With Conduit Prosthetic Valve (Primary Dx) Discharge Disposition: Home or Self Care from Last 3 Months Family History Medical History Relation Name Comments Bicuspid aortic valve Other Relation Name Status Comments Other Social History Tobacco Use Types Packs/Day Years Used Date Smoking Tobacco: Former Cigarettes Q uit: 1990 Smokeless Tobacco: Never Tobacco Cessation:Counseling Given: Not Answered Alcohol Use Standard Drinks/Week Comments Not Currently 0 (1 standard drink = 0.6 oz pur e alcohol) 1 wine per month [facility] Utilities Answer Date Recorded In the past 12 months has [facility] [employer], gas, oil, or water Stop Being Watched threatened to shut off services in your home? No 10/24/2023 Social Connection and Isolation Panel [NHANES] A nswer Date Recorded In a typical week, how many times do you talk on the phone with family, friends, or neighbors? Twice a week 03/06/2020 Frequency of Social Gatherings with Friends and Family Not on file 03/06/2020 Attends Latter-Day Services Not on file 03/06 Active Member [...] medical care, and heating? Somewhat hard 03/06/2020 [facility] of Occupat ional [facility] - Occupational Stress Questionnaire Answer Date [...] your living situation today? I have a [facility] place to live 10/24/2023 Education Answer Date Recorded What is the highest level of school you have completed or the highest degree you have received? Associate degree: occupational, technical, or vocational program 03/06/2020 Sex and Gender Information Value Date Recorded Sex Assigned at Male 07/17/2019 7:45 AM PRECISION FILER HAND Gender Identity Male 03/05/2019 1:37 PM CDT Sexual Orientation Choose not to disclose 2018 7:45 AM PRECISION FILER HAND Last Filed Vital Signs Vital Sign Reading Time Taken Comments Blood Pressure 161/96 01/18/2024 1:36 PM CDT Pulse 70 01/18/2024 1:34 PM CDT Temperature 36.4 ??C (97.5 ??F) 01/18/2024 1:34 PM CD T Respiratory Rate 16 08/13/2020 1:30 PM PRECISION FILER HAND Oxygen Saturation 94% 01/18/2024 1:34 PM CDT Inhaled Oxygen Concentration - - Weight 96.6 kg (212 lb 15.4 oz) 01/18/2024 1:34 PM CDT Height 176 cm (5' 9.29) 08/13/2020 1:30 PM PRECISION FILER HAND Body Mass Index 31.19 08/13/2020 1:30 PM PRECISION FILER HAND Plan of Treatment Upcoming Encounters Date Type Department Care Team (Late st Contact Info) Description 03/05/2024 9:40 AM CDT Appointment Department of Laboratory Medicine in [address] [phone] Mckinley Loredo M.D. [address] [place] [phone] Health Maintenance Due Date Last Done Comments CT Colonography 1959 Cologuard 1959 Colonoscopy 1959 Colorectal Cancer Screening 1959 FIT 1959 HIV Screening 1959 Hepatitis C Screening 1959 Lipid (Cholesterol) Screening 1959 Zoster Vaccines (1 of 2) 2009 Fasting Glucose for Diabetes Screening 03/21/2022 03/21/2019, 03/20/2019, 03/19/2019, Additional history exists Depression Screening (Annual PHQ-2) 09/12/2023 Office Visit for Blood Pressure Check / Re-check 04/19/2024 01/18/2024 DTaP,Tdap,and Td Vaccines (3 - Td or Tdap) 07/24/2030 07/24/2020, 09/17/2010, 12/04/2002 Influenza Vaccine Completed 07/04/2023, , 07/06/2021, Additional history exists COVID-19 Vaccine Completed 10/10/2023, 02/2022, 08/24/2021, Additional history exists Pneumococcal vaccine (0-64 years) Aged Out No longer eligible based on patient's age to complete this topic Medical Devices Implanted Type Area Gm Device Identifier Shelf Expiration Date Model / Serial / Lot Vlv Aort [facility] 25 - [id number] - [id number] Implanted:Qty : 1 on 03/16/2019 by Goran Espinoza M.D. at [facility] Cardiac Valve Prosthesis Left: Heart [employer] 12/11/2021 ONXAAP-2 5 / [id number] / Description:Aortic Valve Pos ition (Composite Graft included) Tb Vnt Drv Twin 1.27x1.37x4.5 - [id number] Implanted:Qty : 1 on 08/28/2019 by Peter Spear M.D. at [facility] Ear Tubes (e.g. PE Tubes) [employer] [id number] / / Tb Vnt Drv Twin 1.27x1.37x4.5 - [id number] Implanted:Qty : 1 on 08/28/2019 by Peter Spear M.D. at [facility] Ear Tubes (e.g. PE Tubes) [employer] [id number] / / Sut Fast Crk Qck Ld Sut Fast - [id number] Implanted:Qty : 6 on 03/16/2019 by Goran Espinoza M.D. at [facility] Hardware e.g. pins/screws/r ods Left: Heart [employer] [id number] / / Description:W/ Aortic Valve Prosthetic Sut Fast Crk Qck Ld Sut Fast - [id number] Implanted:Qty : 6 on 03/16/2019 by Goran Espinoza M.D. at [facility] Hardware e.g. pins/screws/r ods Left: Heart [employer] [id number] / / Description:W/ Aortic Valve Prosthetic Dev Crk Sut Blunt Crv - [id number] Implanted:Qty : 1 on 03/16/2019 by Goran Espinoza M.D. at [facility] Hardware e.g. pins/screws/r ods Left: Heart [employer] [id number] 12/10/2020 [id number] / / [id number] Description:W/ Aortic Valve Prosthetic Dev Crk Sut Blunt Crv - [id number] Implanted:Qty : 1 on 03/16/2019 by Goran Espinoza M.D. at [facility] Hardware e.g. pins/screws/r ods Left: Heart [employer] [id number] 12/10/2020 [id number] / / [id number] Description:W/ Aortic Valve Prosthetic Dev Crk Sut Blunt Crv - [id number] Implanted:Qty : 1 on 03/16/2019 by Goran Espinoza M.D. at [facility] Hardware e.g. pins/screws/r ods Left: Heart [employer] [id number] 12/10/2020 [id number] / / [id number] Description:W/ Aortic Valve Prosthetic Procedures Procedure Name [...] the 2009 CKD_EPI creatinine equation. eGFR-Black/Afric an Bolivian 70 >=60 mL/min/BSA 03/21/2019 10:15 AM CDT Comment: ----ADDITIONAL INFORMATION---- Estimated GFR calculated using the 2009 CKD_EPI creatinine equation. Calcium, Total, S 8.8 8.6 - 10.0 mg/dL 03/21/2019 10:15 AM CDT Glucose, S 124 70 - 140 mg/dL 03/21/2019 10:15 AM CDT Blood (Blood, Arterial) 03/21/2019 8:08 AM CDT 03/21/2019 8:42 AM CDT Alcira Cordon APRN C.N.P., M.S.N. LAB BLOOD ADD-ON [facility] [address] from Last 3 Months or Most Recently Relevant to Health Maintenance Advance Directives For more information, please contact: [phone] * Full Code (Latest Code Status on File) Date Activated Date Inactivated Comments 03/16/2019 1:51 PM 03/21/2019 3:22 PM Question Answer Comments Full Code: Discussed Care Teams Production Technician Relationship Specialty Start Date End Date Elsewhere, Pcp PCP - General Internal Medicine 03/21/19
--- OUTSIDE RECORDS SUMMARY | 2024-02-26 15:57 | XMS_ITS | Clinical Summary ---
Author Organization [facility] Address [place], [place] [address] Care Team Providers Care Fax Machine Operator Name Role Phone Kumar Raymond MD Primary Care Provider [phone] Allergies Active Allergy Reactions Criticality Noted Date [...] TABLET BY MOUTH TWICE DAILY 60 tablet 11/18/2016 Active testosterone enanthate (DELATESTRYL) 200 mg/mL [...] Health Maintenance Due Date Last Done Comments HIV for age 15-65 1974 Hepatitis C [...] 04/08/2021 04/08/2016, 03/22/2015, 01/22/2014, Additional history exists COVID-19 vaccine series (2022-24 season) 2023 Influenza for age 50-64 05/13/2024 08/04/20 15, 08/04/2015, 09/02/2014, Additional history exists Tdap Completed 09/17/2010 Pneumococcal series for age 6-64 Aged Out No longer eligible based on patient's age to complete this topic Procedures Procedure Name Priority Date/Time Associated Diagnosis Comments LIPID PANEL Routine 04/08/2016 11:38 AM CDT Mixed hyperlipidemia from Last 3 Months or Most Recently Relevant to Health Maintenance Results * LIPID PANEL (04/08/2016 11:38 AM CDT) CHOLESTEROL,TOTAL 189 100 - 199 mg/dL 04/08/2016 12:37 PM CDT [facility] TRIGLYCERIDES 73 <150 mg/dL 04/08/2016 12:37 PM CDT [facility] HDL CHOLESTEROL 51 >40 mg/dL 04/08/2016 12:37 PM CDT [facility] NON-HDL CHOLESTEROL 138 <145 mg/dl 04/08/2016 12:37 PM CDT [facility] CHOL/HDL RATIO 3.71 <4.50 04/08/2016 12:37 PM CDT [facility] LDL CHOLESTEROL 123 <=130 mg/dL 04/08/2016 12:37 PM CDT [facility] PATIENT STATUS NON-FASTI NG 04/08/2016 12:37 PM CDT [facility] Blood BLOOD SPECIMEN / Unknown Venipuncture / Unknown 04/08/2016 11:38 AM CDT 04/08/2016 11:38 AM CDT Yannick Garnett MD CHEMISTRY [facility] [address] [place] [address], from Last 3 Months or Most Recently Relevant to Health Maintenance Advance Directives * Full Code (Latest Code Status on File) Date Activated Date Inactivated Comments 06/24/2014 7:19 AM 06/24/2014 5:00 PM Care Teams Fax Machine Operator Relationship Specialty Start Date End Date Kumar Raymond MD [address] [place] [phone] PCP - General Family Practice 11/17/17
--- OUTSIDE RECORDS SUMMARY | 2024-02-26 15:57 | XMS_ITS | Encounter Summary ---
Author Organization [facility] Address [address] [place] [address] Care Team Providers Care Sheet Metal Supervisor Name Role Phone Elsewhere, Pcp Primary Care Provider Unavailabl e Reason for Referral * Outpatient (Routine) - Authorized Specialty Diagnoses / Procedures Referred By Contac t Referred To Contact Cardiovascular Disease Mckinley Gomez M.D. [address] [place] [phone] [facility] Referral ID Status Reason Start Date Expiration Date V isits Requested Visits Authorized [id number] Authorized 01/18/2024 07/19/2025 1 1 * Cardiovascular-Diagnostic (Routine) - Authorized Specialty Diagnoses / Procedures Referred By Contac t Referred To Contact Diagnoses Replace Aorta With Conduit Prosthetic Valve Procedures Echo Transthoracic (TTE) Mckinley Gomez M.D. [address] [place] [phone] [facility] Referral ID Status Reason Start Date Expiration Date V isits Requested Visits Authorized [id number] Authorized 01/18/2024 01/17/2025 1 1 Reason for Visit * Reason Comments Follow-up * Outpatient (Routine) - Closed Specialty Diagnoses / Procedures Referred By Contac t Referred To Contact Cardiovascular Disease Mckinley Gomez M.D. [address] [place] [phone] [facility] Region Referral ID Status Reason Start Date Expiration Date Visits Re quested Visits Authorized [id number] Closed 10/26/2023 04/26/2025 1 1 Encounter Details Date Type Department Care Team (Latest Contact Info) Description 01/18/2024 1:45 PM CDT Office Visit Department of Cardiovascular Diseases in [place] [address] [place] [phone] Mckinley Gomez M.D. [address] [place] [address] Replace Aorta With Conduit Prosthetic Valve (Primary Dx) Discharge Disposition: Home or Self Care Social History Tobacco Use Types Packs/Day Years Used Date Smoking Tobacco: Former Cigarettes Q uit: 1990 Smokeless Tobacco: Never Tobacco Cessation:Counseling Given: Not Answered Alcohol Use Standard Drinks/Week Comments Not Currently 0 (1 standard drink = 0.6 oz pur e alcohol) 1 wine per month [facility] Utilities Answer Date Recorded In the past 12 months has th e electric, gas, oil, or water company threatened to shut off services in your home? No 10/24/2023 Social Connection and Isolation Panel [NHANES] A nswer Date Recorded In a typical week, how many times do you talk on the phone with family, friends, or neighbors? Twice a week 03/06/2020 Frequency of Social Gatherings with Friends and Family Not on file 03/06/2020 Attends Alevism Services Not on file 03/06 Active Member [...] medical care, and heating? Somewhat hard 03/06/2020 [facility] [place] of Occupat ional Health - Occupational Stress Questionnaire Answer [...] your living situation today? I have a [facility] place to live 10/24/2023 Education Answer Date Recorded What is the highest level of school you have completed or the highest degree you have received? Associate degree: occupational, technical, or vocational program 03/06/2020 Sex and Gender Information Value Date Recorded Sex Assigned at Male 07/17/2019 7:45 AM LICENSED CHEMICAL SPRAY TECHNICIAN Gender Identity Male 03/05/2019 1:37 PM CDT Sexual Orientation Choose not to disclose 2018 7:45 AM LICENSED CHEMICAL SPRAY TECHNICIAN documented as of this encounter Last Filed Vital Signs Vital Sign Reading Time Taken Comments Blood Pressure 161/96 01/18/2024 1:36 PM CDT Pulse 70 01/18/2024 1:34 PM CDT Temperature 36.4 ??C (97.5 ??F) 01/18/2024 1:34 PM CD T Respiratory Rate - - Oxygen Saturation 94% 01/18/2024 1:34 PM CDT Inhaled Oxygen Concentration - - Weight 96.6 kg (212 lb 15.4 oz) 01/18/2024 1:34 PM CDT Height - - Body Mass Index 31.19 08/13/2020 1:30 PM LICENSED CHEMICAL SPRAY TECHNICIAN documented in this encounter Progress Notes * Mckinley Gomez M.D. - 01/18/2024 1:45 PM CDT SUBJECTIVE CHIEF COMPLAINT/REASON FOR VISIT Aortic valve replacement, history of bicuspid aortic valve, anticoagulation management. HISTORY OF PRESENT ILLNESS Burt is a pleasant 63-year-old gentleman from [place], [place]. He is known to me from multiple prior visits over the years. Purpose of today's visit was to review an updated echocardiogram andlipid panel. Unfortunately, we were not able to get the lipid panel prior to today's visit. We wereable to get the echocardiogram, which was completed in [place]. I have also personally reviewed the images and agree, overall, with the reported impressions. The aortic valve mechanical prosthesis appears to be functioning normally without evidence of obstruction or significant prosthetic or periprosthetic regurgitation. On the other hand, there were thin linear mobile echo densities on the ventricular aspect of the prosthesis. LV chamber size and function was normal. Right ventricular chamber size and function was normal. 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 This is physically demanding work with long hours. 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 Due to the long work hours, this hasleft little time for formal exercise. He did recently mow his yard. This is a very physically demanding task [place] The yard was quite overgrown and had to cut sections several times [id number]. With this, he was more aware of exertional dyspnea. He has had no exertional chest pain. He reports easy bruising on warfarin, but no spontaneous bleeding. He has had no stroke or TIA symptoms. He reports rare episodes of tachy palpitations with the last episode being approximately 1 year back. He has had no syncope. He reports occasional episodes of dizziness. 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 OBJECTIVE PHYSICAL EXAMINATION Vital Signs: Weight 96.6 kg. Heart rate 70, regular. Blood pressure 161/96. General: This is a middle-aged gentleman sitting comfortably in no acute distress. Eyes: Anicteric. Ears, Nose, and Throat: The mucous membranes are moist. Lungs: Clear to auscultation. Heart: Central venous pressure normal. Cardiac auscultation notable for regular rhythm, crisp opening and closing click of the aortic mechanical prosthesis, and no audible murmur. Extremities: Warm without pitting edema. Skin: Minor bruising on the extensor surfaces of the gudino. 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 We reviewed his echo findings together, and I also brought up the images so that we could view these. He had thin linear mobile echo densities on the aortic mechanical prosthesis. I think this would be unusual for thrombus, and I suspect this is degenerative strands, likely postop related. Nonetheless, I think it is worth a trial of intensifying his INR range. His current INR range is 1.5-2 (goal INR = 1.8) in light of his On-X valve. For the next 3 months, I am going to increase his INR range to 2-3 (goal INR = 2.5). We will then plan to update an echocardiogram just prior to return visit. Blood pressure remains elevated in clinic. Blood pressure was 150s over 90s at last visit, and today it is 160/90 mmHg. I am going to start hydrochlorothiazide 25 mg daily, although I suspect he willrequire at least 2 drugs for blood pressure control. In the meantime, I have asked Burt to get a home blood pressure cuff and monitor blood pressure over the coming 2 weeks. He will then send his blood pressure readings in to the clinic, and we will decide whether to add amlodipine at that time. I am going to update a basic metabolic panel before next visit. Burt will contact his INR clinic in [place] with the new INR target recommendations. ADDENDUM 02/10/2024: BP remains elevated on HCTZ. I am adding amlodipine [address]. Mckinley Gomez M.D. CT CT Job ID: [id number] documented in this encounter Miscellaneous Notes * Addendum Note - Mckinley Gomez M.D. - 01/18/2024 1:45 PM CDTAddended by: MCKINLEY GOMEZ on: 02/10/2024 08:25 AM Modules accepted: Orders documented in this encounter Plan of Treatment Upcoming Encounters Date Type Department Care Team (Late st Contact Info) Description 03/05/2024 9:40 AM CDT Appointment Department of Laboratory Medicine in [address] [phone] Mckinley Gomez M.D. [address] [place] [phone] Scheduled Orders Name Type Priority Associated Diagnoses Order Schedule Echo Transthoracic (TTE) Echocardiography Routine Replace Aorta With Conduit Prosthetic Valve Expected: 04/19/2024 (Approximate), Expires: 04/19/2025 Basic Metabolic Panel Lab Routine Replace Aorta With Conduit Prosthetic Valve Expected: 04/19/2024, Expires: 04/19/2025 Scheduled Referrals Name Type Priority Associated Diagnoses Order Schedule Cardiovascular Disease office visit (clinic) Outpatient Referral Routine Expect ed: 04/19/2024, Expires: 04/19/2025 documented as of this encounter Visit Diagnoses Diagnosis Replace Aorta With Conduit Prosthetic Valve- Primary documented in this encounter Care Teams Sheet Metal Supervisor Relationship Specialty Start Date End Date Elsewhere, Pcp PCP - General Internal Medicine 03/21/19 documented as of this encounter
== END 2024-02-22 10:33 | disposition home or self-care (01) ==
LOC: NFLDREF 02-26 15:55
PROVIDERS: PCP Family Medicine; Referring Provider Family Medicine; Visit Provider Family Medicine
DX: E78.5 Hyperlipidemia, unspecified (principal); Z79.01 Long term (current) use of anticoagulants
CPT/HCPCS: 80061; 84450; 84460

== ENCOUNTER 2024-05-09 13:42 | Outpatient (CLI) | payer MEDICARE, SELFPAY ==
--- OUTSIDE RECORDS SUMMARY | 2024-05-10 10:52 | XMS_ITS | Clinical Summary ---
Author Organization [facility] Address [place], [place] [address] Care Team Providers Care Intellectual Property Legal Assistant Name Role Phone Kumar Raymond MD Primary Care Provider [phone] Allergies Active Allergy Reactions Criticality Noted Date [...] age 15-65 1974 Hepatitis C screening for ag e 18-79 1977 Zoster (shingles) series for age 50+ (1 of 2) 2009 Depression screening for age 12+ 10/13/2016 10/13/2015, 10/06/2015, 09/22/2015 BMI (ht and wt on same day) for age 18+ 04/08/2017 04/08/2016 Colonoscopy through age 75 10/04/201910/04, 10/03/2014, 09/17/2010 Tetanus booster 09/17/2020 09/17/2010, 09/17/2010 Lipids for age 45-75 04/08/2021 04/08/2016, 03/22/2015, 01/22/2014, Additional history exists COVID-19 vaccine series (1 - 2022-24 season) 2023 Pneumococcal series for age 65+ (1 of 1 - PCV) 2024 Influenza for age 65+ 05/13/2024 08/04/2015 , 09/02/2014, 09/06/2003 Tdap Completed 09/17/2010 Procedures Procedure Name Priority Date/Time Associated Diagnosis Comments LIPID PANEL Routine 04/08/2016 11:38 AM CDT Mixed hyperlipidemia from Last 3 Months or Most Recently Relevant to Health Maintenance Results * LIPID PANEL (04/08/2016 11:38 AM CDT) CHOLESTEROL,TOTAL 189 100 - 199 mg/dL 04/08/2016 12:37 PM CDT [facility] TRIGLYCERIDES 73 <150 mg/dL 04/08/2016 12:37 PM CDT [facility] HDL CHOLESTEROL 51 >40 mg/dL 04/08/2016 12:37 PM CDT [facility] NON-HDL CHOLESTEROL 138 <145 mg/dl 04/08/2016 12:37 PM CDT [facility] CHOL/HDL RATIO 3.71 <4.50 04/08/2016 12:37 PM CDT [facility] LDL CHOLESTEROL 123 <=130 mg/dL 04/08/2016 12:37 PM CDT [facility] PATIENT STATUS NON-FASTI NG 04/08/2016 12:37 PM CDT [facility] Blood BLOOD SPECIMEN / Unknown Venipuncture / Unknown 04/08/2016 11:38 AM CDT 04/08/2016 11:38 AM CDT Yannick Garnett MD CHEMISTRY [facility] [address] [place] [address], from Last 3 Months or Most Recently Relevant to Health Maintenance Advance Directives * Full Code (Latest Code Status on File) Date Activated Date Inactivated Comments 06/24/2014 7:19 AM 06/24/2014 5:00 PM Care Teams Intellectual Property Legal Assistant Relationship Specialty Start Date End Date Kumar Raymond MD [address] [place] [id number] PCP - General Family Practice 11/17/17
--- OUTSIDE RECORDS SUMMARY | 2024-05-10 10:52 | XMS_ITS | Referral Summary ---
Author Organization [facility] Address [address] [place] [address] Care Team Providers Care Nurse Research Name Role Phone Elsewhere, Pcp Primary Care Provider Unavailabl e Source Comments Patient records contain information from all sites at [facility]. For routine questions regarding patient records, call [phone] during business hours, M-F 8:00 AM - 5:00 PM Central Time. Record requests for emergency care only can be directed to [phone] at any time.[facility] Encounters Date Type Department Care Team Description 03/05/2024 Clinical Communication Department of Cardiovascular Medicine in [place], [place] [address] [place] [phone] Mckinley Loredo M.D. Form Review (INR) 02/10/2024 Orders Only Department of Cardiovascular Diseases in [address] [address] Mckinley Loredo M.D. 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 After 3 months, however, you can reduce your INR goal to 1.5-2.5. This needs to be discussed with your primary care provider/healthcare translator to rule out contraindications before changing the INR goal. Replace Aorta With Conduit Prosthetic Valve 01/2019 Overview (03/18/2019): 03/16/[address] Espinoza Aortic [...] pur e alcohol) [address] [facility] Utilities Answer Date Recorded In the past 12 months has [employer], gas, oil, or water [employer] threatened to shut off services in your home? No 10/24/2023 Social Connection and Isolation Panel [NHANES] A nswer Date Recorded In a typical week, how many times do you talk on the phone with family, friends, or neighbors? Twice a week 03/06/2020 Frequency of Social Gatherings with Friends and Family Not on file 03/06/2020 Attends Restorationism Services Not on file 03/06 Active Member [...] medical care, and heating? Somewhat hard 03/06/2020 [facility] [employer] [facility] - Occupational Stress Questionnaire Answer Date [...] your living situation today? I have a [facility] place to live 10/24/2023 Education Answer Date Recorded What is the highest level of school you have completed or the highest degree you have received? Associate degree: occupational, technical, or vocational program 03/06/2020 Sex and Gender Information Value Date Recorded Sex Assigned at Male 07/17/2019 7:45 AM FORENSIC AUDIT EXPERT Gender Identity Male 03/05/2019 1:37 PM CDT Sexual Orientation Choose not to disclose 2018 7:45 AM FORENSIC AUDIT EXPERT Last Filed Vital Signs Vital Sign Reading Time Taken Comments Blood Pressure 161/96 01/18/2024 1:36 PM CDT Pulse 70 01/18/2024 1:34 PM CDT Temperature 36.4 ??C (97.5 ??F) 01/18/2024 1:34 PM CD T Respiratory Rate 16 08/13/2020 1:30 PM FORENSIC AUDIT EXPERT Oxygen Saturation 94% 01/18/2024 1:34 PM CDT Inhaled Oxygen Concentration - - Weight 96.6 kg (212 lb 15.4 oz) 01/18/2024 1:34 PM CDT Height 176 cm (5' 9.29) 08/13/2020 1:30 PM FORENSIC AUDIT EXPERT Body Mass Index 31.19 08/13/2020 1:30 PM FORENSIC AUDIT EXPERT Plan of Treatment Upcoming Encounters Date Type Department Care Team (Latest Contact Info) Description 06/07/2024 12:00 PM CDT Appointment Department of Laboratory Medicine in [address] [phone] Mckinley Loredo M.D. [address] [place] [phone] 06/07/2024 12:30 PM CDT Appointment Department of Radiology in [address] [phone] Mckinley Loredo M.D. [address] [place] [phone] Discharge Disposition: Home or Self Care 06/13/2024 11:45 AM CDT Office Visit Department of Cardiovascular Diseases in [address] [phone] Mckinley Loredo M.D. [address] [place] [phone] Medical Devices Implanted Type Area Rn Managed Care Device Identifier Shelf Expiration Date Model / Serial / Lot Vlv Aort [facility] 25 - [id number] - [id number] Implanted:Qty : 1 on 03/16/2019 by Goran Espinoza M.D. at [facility] Cardiac Valve Prosthesis Left: Heart [employer] 12/11/2021 ONXAAP-2 5 [id number] / Description:Aortic Valve Pos ition (Composite Graft included) Tb Vnt Drv Twin 1.27x1.37x4.5 - [id number] Implanted:Qty : 1 on 08/28/2019 by Peter Spear M.D. at [facility] Ear Tubes (e.g. PE Tubes) [employer] Eliza [id number] / / Tb Vnt Drv Twin 1.27x1.37x4.5 - [id number] Implanted:Qty : 1 on 08/28/2019 by Peter Spear M.D. at [facility] Ear Tubes (e.g. PE Tubes) [employer] Eliza [id number] / / Sut Fast Crk Qck Ld Sut Fast - [id number] Implanted:Qty : 6 on 03/16/2019 by Goran Espinoza M.D. at [facility] Hardware e.g. pins/screws/r ods Left: Heart [employer] [id number] / / Description:W/ Aortic Valve Prosthetic Sut Fast Crk Qck Ld Sut Fast - [id number] Implanted:Qty : 6 on 03/16/2019 by Goran Espinoza M.D. at [facility] Hardware e.g. pins/screws/r ods Left: Heart [employer] [id number] / / Description:W/ Aortic Valve Prosthetic Dev Crk Sut Blunt Crv - [id number] Implanted:Qty : 1 on 03/16/2019 by Goran Espinoza M.D. at [facility] Hardware e.g. pins/screws/r ods Left: Heart [employer] [id number] 12/10/2020 [id number] / / [id number] Description:W/ Aortic Valve Prosthetic Dev Crk Sut Blunt Crv - [id number] Implanted:Qty : 1 on 03/16/2019 by Goran Espinoza M.D. at [facility] Hardware e.g. pins/screws/r ods Left: Heart [employer] [id number] 12/10/2020 [id number] / / [id number] Description:W/ Aortic Valve Prosthetic Dev Crdarrius Borges Crv - [id number] Implanted:Qty : 1 on 03/16/2019 by Goran Espinoza M.D. at [facility] Hardware e.g. pins/screws/r ods Left: Heart [employer] [id number] 12/10/2020 [id number] / / [id number] Description:W/ Aortic Valve Prosthetic Procedures Procedure Name Priority Date/Time Associated Diagnosis Comments EXTP COMPLETE METABOLIC PANEL, BLOOD Routine 02/22/2024 EXTP LIPID PANEL, BLOOD Routine 02/22/2024 BASIC METABOLIC PANEL, S/P Routine 03/21/2019 8:08 AM CDT from Last 3 Months or Most Recently Relevant to Health Maintenance Results * (ABNORMAL) EXT Lipid Panel, Blood (02/22/2024) EXT Cholesterol, Total, S 206(H) 90 - 199 mg/dL [facility]) EXT Triglycerides, S 143 40 - 149 mg/dL [facility] EXT Cholesterol, HDL, S 53 >=40 mg/dL [facility]) EXT Calculated LDL 124(H) <100 mg/dL [facility]) Blood (Blood, Venous) 02/22/2024 Historical Provider LAB [place] [address], [facility] [phone] * (ABNORMAL) EXT Complete Metabolic Panel, Blood (02/22/2024) EXT AST 42(H) 12 - 35 U/L [facility] EXT ALT 36(N) 4 - 50 U/L [facility]) Blood (Blood, Venous) 02/22/2024 Historical Provider LAB BLOOD NON ADD-ON [facility]) [address] [place] [address] * (ABNORMAL) BMP (Basic Metabolic Panel) (03/21/2019 [...] the 2009 CKD_EPI creatinine equation. eGFR-Black/Afric an Moldovan 70 >=60 mL/min/BSA 03/21/2019 10:15 AM CDT Comment: ----ADDITIONAL INFORMATION---- Estimated GFR calculated using the 2009 CKD_EPI creatinine equation. Calcium, Total, S 8.8 8.6 - 10.0 mg/dL 03/21/2019 10:15 AM CDT Glucose, S 124 70 - 140 mg/dL 03/21/2019 10:15 AM CDT Blood (Blood, Arterial) 03/21/2019 8:08 AM CDT 03/21/2019 8:42 AM CDT Alcira Cordon APRN C.N.P., M.S.N. LAB BLOOD ADD-ON [facility] [address] from Last 3 Months or Most Recently Relevant to Health Maintenance Advance Directives For more information, please contact: [phone] * Full Code (Latest Code Status on File) Date Activated Date Inactivated Comments 03/16/2019 1:51 PM 03/21/2019 3:22 PM Question Answer Comments Full Code: Discussed Care Teams Nurse Research Relationship Specialty Start Date End Date Elsewhere, Pcp PCP - General Internal Medicine 03/21/19
--- OUTSIDE RECORDS SUMMARY | 2024-05-10 10:52 | XMS_ITS | Encounter Summary ---
Author Organization [facility] Address [address] [place] [address] Care Team Providers Care Airconditioning Drafting Officer Name Role Phone Elsewhere, Pcp Primary Care Provider Unavailabl e Reason for Referral * Outpatient (Routine) - Authorized Specialty Diagnoses / Procedures Referred By Contac t Referred To Contact Cardiovascular Disease Mckinley Gomez M.D. [address] [place] [phone] [facility] Referral ID Status Reason Start Date Expiration Date V isits Requested Visits Authorized [id number] Authorized 01/18/2024 07/19/2025 1 1 * Cardiovascular-Diagnostic (Routine) - Authorized Specialty Diagnoses / Procedures Referred By Contac t Referred To Contact Diagnoses Replace Aorta With Conduit Prosthetic Valve Procedures Echo Transthoracic (TTE) Mckinley Gomez M.D. [address] [place] [address] [facility] Referral ID Status Reason Start Date Expiration Date V isits Requested Visits Authorized [id number] Authorized 01/18/2024 01/17/2025 1 1 Reason for Visit * Reason Comments Follow-up * Outpatient (Routine) - Closed Specialty Diagnoses / Procedures Referred By Contac t Referred To Contact Cardiovascular Disease Mckinley Gomez M.D. [address] [place] [address] [facility] Region Referral ID Status Reason Start Date Expiration Date Visits Re quested Visits Authorized [id number] Closed 10/26/2023 04/26/2025 1 1 Encounter Details Date Type Department Care Team (Latest Contact Info) Description 01/18/2024 1:45 PM CDT Office Visit Department of Cardiovascular Diseases in [place] [address] [place] [phone] Mckinley Gomez M.D. [address] [place] [address] Replace Aorta With Conduit Prosthetic Valve (Primary Dx) Discharge Disposition: Home or Self Care Social History Tobacco Use Types Packs/Day Years Used Date Smoking Tobacco: Former Cigarettes Q uit: 1990 Smokeless Tobacco: Never Tobacco Cessation:Counseling Given: Not Answered Alcohol Use Standard Drinks/Week Comments Not Currently 0 (1 standard drink = 0.6 oz pur e alcohol) 1 wine per month [facility] Utilities Answer Date Recorded In the past 12 months has [employer] electric, gas, oil, or water company threatened to shut off services in your home? No 10/24/2023 Social Connection and Isolation Panel [NHANES] A nswer Date Recorded In a typical week, how many times do you talk on the phone with family, friends, or neighbors? Twice a week 03/06/2020 Frequency of Social Gatherings with Friends and Family Not on file 03/06/2020 Attends Gnosticist Services Not on file 03/06 Active Member [...] medical care, and heating? Somewhat hard 03/06/2020 [facility] of Occupat ional Health - Occupational Stress [...] your living situation today? I have a [facility] place to live 10/24/2023 Education Answer Date Recorded What is the highest level of school you have completed or the highest degree you have received? Associate degree: occupational, technical, or vocational program 03/06/2020 Sex and Gender Information Value Date Recorded Sex Assigned at Male 07/17/2019 7:45 AM MANAGER BUSINESS BANKING Gender Identity Male 03/05/2019 1:37 PM CDT Sexual Orientation Choose not to disclose 2018 7:45 AM MANAGER BUSINESS BANKING documented as of this encounter Last Filed [...] Body Mass Index 31.19 08/13/2020 1:30 PM MANAGER BUSINESS BANKING documented in this encounter Progress Notes * Mckinley Gomez M.D. - 01/18/2024 1:45 PM CDT SUBJECTIVE CHIEF COMPLAINT/REASON FOR VISIT Aortic valve replacement, history of bicuspid aortic valve, anticoagulation management. HISTORY OF PRESENT ILLNESS Burt is a pleasant 63-year-old gentleman from [place], [place]. He is known to me from multiple prior visits over the years. Purpose of today's visit was to review an updated echocardiogram andlipid panel. Unfortunately, we were not able to get the lipid panel prior to today's visit. We wereable to get the echocardiogram, which was completed in [place]. I have also personally reviewed the images [...] and had to cut sections several times [id number]. With this, he was more aware of [...] of dizziness. This occurs most characteristically with [id number] activity such as restacking pots and pans [...] Burt will contact his INR clinic in [place] with the new INR target recommendations. ADDENDUM 02/10/2024: BP remains elevated on HCTZ. I am adding amlodipine [address] Gomez M.D. CT CT Job ID: [id number] documented in this encounter Miscellaneous Notes * Addendum Note - Mckinley Gomez M.D. - 01/18/2024 1:45 PM CDTAddended by: MCKINLEY GOMEZ on: 02/10/2024 08:25 AM Modules accepted: Orders documented in this encounter Plan of Treatment Upcoming Encounters Date Type Department Care Team (Latest Contact Info) Description 06/07/2024 12:00 PM CDT Appointment Department of Laboratory Medicine in [address] [phone] Mckinley Gomez M.D. [address] [place] [phone] 06/07/2024 12:30 PM CDT Appointment Department of Radiology in [address] [phone] Mckinley Gomez M.D. [address] [place] [phone] Discharge Disposition: Home or Self Care 06/13/2024 11:45 AM CDT Office Visit Department of Cardiovascular Diseases in [address] [phone] Mckinley Gomez M.D. [address] [place] [phone] Scheduled Orders Name Type Priority Associated Diagnoses [...] Primary documented in this encounter Care Teams Airconditioning Drafting Officer Relationship Specialty Start Date End Date Elsewhere, Pcp PCP - General Internal Medicine 03/21/19 documented as of this encounter
--- OUTSIDE RECORDS SUMMARY | 2024-05-10 10:52 | XMS_ITS | Clinical Summary ---
Author Organization [facility] Address [address] [place] [address] Care Team Providers Care Employment Legal Assistant Name Role Phone Elsewhere, Pcp Primary Care Provider Unavailabl e Source Comments Patient records contain information from all sites at [facility]. For routine questions regarding patient records, call [phone] during business hours, M-F 8:00 AM - 5:00 PM Central Time. Record requests for emergency care only can be directed to [phone] at any time.[facility] Allergies Active Allergy Reactions Criticality Noted Date [...] (07/17/2019): Added automatically from request for surgery [id number] Palpitations 06/25/2019 Obstructive Sleep Apnea Adult 05/31/2019 Dysfunction Erectile 05/31/2019 Deconditioned 05/31/2019 Anticoagulant Therapy 03/18/2019 Overview (03/18/2019): INR goal: 2.0 - 3.0 Warfarin duration and indication: Aortic mechanical valve replacement requires life-long anticoagulation therapy. After 3 months, however, you can reduce your INR goal to 1.5-2.5. This needs to be discussed with your primary care provider/spinning doffer to rule out contraindications before changing the [...] Clinical Communication Department of Cardiovascular Medicine in [address] [phone] Mckinley Loredo M.D. Form Review (INR) 02/10/2024 Orders Only Department of Cardiovascular Diseases in [address] [phone] Mckinley Loredo M.D. from Last 3 Months Family History Medical [...] pur e alcohol) 1 wine per month [facility] Utilities Answer Date Recorded In the past 12 months has [employer], oil, or water [employer] threatened to shut off services in your home? No 10/24/2023 Social Connection and Isolation Panel [NHANES] A nswer Date Recorded In a typical week, how many times do you talk on the phone with family, friends, or neighbors? Twice a week 03/06/2020 Frequency of Social Gatherings with Friends and Family Not on file 03/06/2020 Attends Quaker Services Not on file 03/06 Active Member [...] medical care, and heating? Somewhat hard 03/06/2020 [facility] of Occupat ional [facility] - Occupational Stress Questionnaire Answer Date [...] Sex Assigned at Male 07/17/2019 7:45 AM PROSTHODONTIST/OWNER Gender Identity Male 03/05/2019 1:37 PM CDT Sexual Orientation Choose not to disclose 2018 7:45 AM PROSTHODONTIST/OWNER Last Filed Vital Signs Vital Sign Reading Time Taken Comments Blood Pressure 161/96 01/18/2024 1:36 PM CDT Pulse 70 01/18/2024 1:34 PM CDT Temperature 36.4 ??C (97.5 ??F) 01/18/2024 1:34 PM CD T Respiratory Rate 16 08/13/2020 1:30 PM PROSTHODONTIST/OWNER Oxygen Saturation 94% 01/18/2024 1:34 PM CDT Inhaled Oxygen Concentration - - Weight 96.6 kg (212 lb 15.4 oz) 01/18/2024 1:34 PM CDT Height 176 cm (5' 9.29) 08/13/2020 1:30 PM PROSTHODONTIST/OWNER Body Mass Index 31.19 08/13/2020 1:30 PM PROSTHODONTIST/OWNER Plan of Treatment Upcoming Encounters Date Type Department Care Team (Latest Contact Info) Description 06/07/2024 12:00 PM CDT Appointment Department of Laboratory Medicine in [address] [phone] Mckinley Loredo M.D. [address] [place] [phone] 06/07/2024 12:30 PM CDT Appointment Department of Radiology in [address] [phone] Mckinley Loredo M.D. [address] [place] [phone] Discharge Disposition: Home or Self Care 06/13/2024 11:45 AM CDT Office Visit Department of Cardiovascular Diseases in [address] [phone] Mckinley Loredo M.D. [address] [place] [phone] Health Maintenance Due Date Last Done Comments Abdominal Aortic Aneurysm (A AA) Screen 1959 CT Colonography 1959 Cologuard 1959 Colonoscopy 1959 Colorectal Cancer Screening 1959 FIT 1959 HIV Screening 1959 Hepatitis C Screening 1959 Zoster Vaccines (1 of 2) 2009 Fasting Glucose for Diabetes Screening 03/21/2022 03/21/2019, 03/20/2019, 03/19/2019, Additional history exists Depression Screening (Annual PHQ-2) 09/12/2023 COVID-19 Vaccine (2022-2 4 season) 2024 10/10/2023, 07/18/2022, 08/24/2021, Additional history exists Fall Risk Screen (Annual) 2024 Pneumococcal vaccine (65+ ye ars) (1 of 1 - PCV) 2024 Office Visit for Blood Press ure Check / Re-check 04/19/2024 01/18/2024 Influenza Vaccine (#1) 2024 3, 07/18/2022, 07/06/2021, Additional history exists DTaP,Tdap,and Td Vaccines (3 - Td or Tdap) 07/24/2030 07/24/2020, 09/17/2010, 12/04/2002 Medical Devices Implanted Type Area Neurological Surgeon Device Identifier Shelf Expiration Date Model / Serial / Lot Vlv Aort [facility] 25 - [id number] - [id number] Implanted:Qty : 1 on 03/16/2019 by Goran Espinoza M.D. at [facility] Cardiac Valve Prosthesis Left: Heart [employer] 12/11/2021 ONXAAP-2 5 / [id number] / Description:Aortic Valve Pos ition (Composite Graft included) Tb Vnt Drv Twin 1.27x1.37x4.5 - [id number] Implanted:Qty : 1 on 08/28/2019 by Peter Spear M.D. at [facility] Ear Tubes (e.g. PE Tubes) [employer] [id number] / / Tb Vnt Drv Twin 1.27x1.37x4.5 - [id number] Implanted:Qty : 1 on 08/28/2019 by Peter Spear M.D. at [facility] Ear Tubes (e.g. PE Tubes) [facility] Eliza [id number] / / Sut Fast Crk Qck Ld Sut Fast - [id number] Implanted:Qty : 6 on 03/16/2019 by Goran Espinoza M.D. at [facility] Hardware e.g. pins/screws/r ods Left: Heart [employer] [id number] / / Description:W/ Aortic Valve Prosthetic Sut Fast Crk Qck Ld Sut Fast - [id number] Implanted:Qty : 6 on 03/16/2019 by Goran Espinoza M.D. at [facility] Hardware e.g. pins/screws/r ods Left: Heart [employer] [id number] / / Description:W/ Aortic Valve Prosthetic Dev Crk Sut Blunt Crv - [id number] Implanted:Qty : 1 on 03/16/2019 by Goran Espinoza M.D. at [facility] Hardware e.g. pins/screws/r ods Left: Heart [employer] [id number] 12/10/2020 [id number] / / [id number] Description:W/ Aortic Valve Prosthetic Dev Crk Sut Blunt Crv - [id number] Implanted:Qty : 1 on 03/16/2019 by Goran Espinoza M.D. at [facility] Hardware e.g. pins/screws/r ods Left: Heart [employer] [id number] 12/10/2020 [id number] / / [id number] Description:W/ Aortic Valve Prosthetic Dev Crk Sut Blunt Crv - [id number] Implanted:Qty : 1 on 03/16/2019 by Goran Espinoza M.D. at [facility] Hardware e.g. pins/screws/r ods Left: Heart [employer] [id number] 12/10/2020 [id number] / / [id number] Description:W/ Aortic Valve Prosthetic Procedures Procedure Name Priority Date/Time Associated Diagnosis Comments EXTP COMPLETE METABOLIC PANEL, BLOOD Routine 02/22/2024 EXTP LIPID PANEL, BLOOD Routine 02/22/2024 BASIC METABOLIC PANEL, S/P Routine 03/21/2019 8:08 AM CDT from Last 3 Months or Most Recently Relevant to Health Maintenance Results * (ABNORMAL) EXT Lipid Panel, Blood (02/22/2024) EXT Cholesterol, Total, S 206(H) 90 - 199 mg/dL [facility] EXT Triglycerides, S 143 40 - 149 mg/dL [facility] EXT Cholesterol, HDL, S 53 >=40 mg/dL [facility]) EXT Calculated LDL 124(H) <100 mg/dL [facility]) Blood (Blood, Venous) 02/22/2024 Historical Provider LAB BLOOD NON ADD-ON Performing Organization Address City/[facility]/[place] [address], [facility] [phone] * (ABNORMAL) EXT Complete Metabolic Panel, Blood (02/22/2024) EXT AST 42(H) 12 - 35 U/L [facility]) EXT ALT 36(N) 4 - 50 U/L [facility]) Blood (Blood, Venous) 02/22/2024 Historical Provider LAB BLOOD NON ADD-ON Performing Organization Address City/[facility]/[place] [address], [facility] [phone] * (ABNORMAL) BMP (Basic Metabolic Panel) (03/21/2019 [...] the 2009 CKD_EPI creatinine equation. eGFR-Black/Afric an Djiboutian 70 >=60 mL/min/BSA 03/21/2019 10:15 AM CDT Comment: ----ADDITIONAL INFORMATION---- Estimated GFR calculated using the 2009 CKD_EPI creatinine equation. Calcium, Total, S 8.8 8.6 - 10.0 mg/dL 03/21/2019 10:15 AM CDT Glucose, S 124 70 - 140 mg/dL 03/21/2019 10:15 AM CDT Blood (Blood, Arterial) 03/21/2019 8:08 AM CDT 03/21/2019 8:42 AM CDT Alcira Cordon APRN, C.N.P., M.S.N. LAB BLOOD ADD-ON [facility] [address] from Last 3 Months or Most Recently Relevant to Health Maintenance Advance Directives For more information, please contact: [phone] * Full Code (Latest Code Status on File) Date Activated Date Inactivated Comments 03/16/2019 1:51 PM 03/21/2019 3:22 PM Question Answer Comments Full Code: Discussed Care Teams Employment Legal Assistant Relationship Specialty Start Date End Date Elsewhere, Pcp PCP - General Internal Medicine 03/21/19
--- OUTSIDE RECORDS SUMMARY | 2024-05-10 10:52 | XMS_ITS | Encounter Summary ---
Author Organization [facility] Address [address] [place] [address] Care Team Providers Care Technical Healthcare Consultant Name Role Phone Elsewhere, Pcp Primary Care Provider Unavailabl e Encounter Details Date Type Department Care Team (Late st Contact Info) Description 02/10/2024 Orders Only Department of Cardiovascular Diseases in [place], [place] [address] [place] [phone] Mckinley Loredo M.D. [address] [place] [phone] Social History Tobacco Use Types Packs/Day Years Used Date Smoking Tobacco: Former Cigarettes Q uit: 1990 Smokeless Tobacco: Never Alcohol Use Standard Drinks/Week Comments Not Currently 0 (1 standard drink = 0.6 oz pur e alcohol) 1 wine per month [facility] Utilities Answer Date Recorded In the past 12 months has [employer], gas, oil, or water [employer] threatened to shut off services in your home? No 10/24/2023 Social Connection and Isolation Panel [NHANES] A nswer Date Recorded In a typical week, how many times do you talk on the phone with family, friends, or neighbors? Twice a week 03/06/2020 Frequency of Social Gatherings with Friends and Family Not on file 03/06/2020 Attends Mandaeism Services Not on file 03/06 Active Member [...] medical care, and heating? Somewhat hard 03/06/2020 [facility] - Occupational Stress Questionnaire Answer Date [...] your living situation today? I have a [facility] place to live 10/24/2023 Education Answer Date Recorded What is the highest level of school you have completed or the highest degree you have received? 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 [address] [place] [phone] 06/07/2024 12:30 PM CDT Appointment Department of Radiology in [address] [phone] Mckinley Loredo M.D. [address] [place] [phone] Discharge Disposition: Home or Self Care 06/13/2024 11:45 AM CDT Office Visit Department of Cardiovascular Diseases in [address] [phone] Mckinley Loredo M.D. [address] [place] [phone] documented as of this encounter Visit Diagnoses Not on filedocumented in this encounter Care Teams Technical Healthcare Consultant Relationship Specialty Start Date End Date Elsewhere, Pcp PCP - General Internal Medicine 03/21/19 documented as of this encounter
--- OUTSIDE RECORDS SUMMARY | 2024-05-10 10:52 | XMS_ITS ---
Author Organization [facility] Address [address] [place] [address] Care Team Providers Care Refining Machine Operator Name Role Phone Unavailable Unavailable Unavailable Surgery Details Not on file Complications Check Surgery Details section. Procedure Estimated Blood Loss Check Surgery Details section. Procedure Findings Check Surgery Details section. Procedure Specimens Taken Check Surgery Details section.
--- OUTSIDE RECORDS SUMMARY | 2024-05-10 10:52 | XMS_ITS | Encounter Summary ---
Author Organization [facility] Address [address] [place] [id number] Care Team Providers Care Physician General Internal Medicine Name Role Phone Elsewhere, Pcp Primary Care Provider Unavailabl e Reason for Visit * Reason Onset Date Comments Form Review 03/05/2024 INR Encounter Details Date Type Department Care Team (Latest Contact Info) Description 03/05/2024 Clinical Communication Department of Cardiovascular Medicine in [place], [place] [address] [place] [phone] Mckinley Loredo M.D. [address] [place] [phone] Form Review (INR) Social History Tobacco Use Types Packs/Day Years Used Date Smoking Tobacco: Former Cigarettes Q uit: 1991 Smokeless Tobacco: Never Alcohol Use Standard Drinks/Week Comments Not Currently 0 (1 standard drink = 0.6 oz pur e alcohol) 1 wine per month [facility] Utilities Answer Date Recorded In the past 12 months has [employer], gas, oil, or water [employer] threatened to shut off services in your home? No 10/24/2023 Social Connection and Isolation Panel [NHANES] A nswer Date Recorded In a typical week, how many times do you talk on the phone with family, friends, or neighbors? Twice a week 03/06/2020 Frequency of Social Gatherings with Friends and Family Not on file 03/06/2020 Attends Latter Day Services Not on file 03/06 Active Member [...] medical care, and heating? Somewhat hard 03/06/2020 [facility] - Occupational Stress [...] your living situation today? I have a [facility] place to live 10/24/2023 Education Answer Date Recorded What is the highest level of school you have completed or the highest degree you have received? 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 Called [facility] number to ask where this needed to go. Was informed by Ngoc that we didn't need to do anything with it being there was no pcp. Forwarded the INR to [facility] Primary Care Nurses documented in this encounter Plan of Treatment Upcoming Encounters Date Type Department Care Team (Latest Contact Info) Description 06/07/2024 12:00 PM CDT Appointment Department of Laboratory Medicine in [address] [phone] Mckinley Loredo M.D. [address] [place] [phone] 06/07/2024 12:30 PM CDT Appointment Department of Radiology in [address] [phone] Mckinley Loredo M.D. [address] [place] [phone] Discharge Disposition: Home or Self Care 06/13/2024 11:45 AM CDT Office Visit Department of Cardiovascular Diseases in [address] [phone] Mckinley Loredo M.D. [address] [place] [phone] documented as of this encounter Visit Diagnoses Not on filedocumented in this encounter Care Teams Physician General Internal Medicine Relationship Specialty Start Date End Date Elsewhere, Pcp PCP - General Internal Medicine 03/21/19 documented as of this encounter
== END 2024-05-09 13:43 | disposition home or self-care (01) ==
LOC: NFLDREF 05-10 10:50
PROVIDERS: PCP Family Medicine; Referring Provider Family Medicine; Visit Provider Family Medicine
DX: Z79.01 Long term (current) use of anticoagulants (principal)
CPT/HCPCS: 85610

== ENCOUNTER 2024-05-30 21:57 | Emergency (ER) | payer MEDICARE, SELFPAY ==
[2024-05-30 22:09] VITALS: BP 149/77; PULSE 83; RESP 16; TEMP 36.4; O2SAT 95; BMI 30.1
--- NOTE | 2024-05-30 22:57 | ED.MALEGU ---
HPI - Male Genitourinary General Time Seen by Provider: 22:58 Date Seen: 05/30/24 Chief complaint: Urogenital Problems, Male Stated complaint: UTI Time Seen by Provider: 05/30/24 23:11 Source: patient, RN notes reviewed and old records reviewed Mode of arrival: ambulatory Limitations: no limitations History of Present Illness HPI Narrative: Burt is a very pleasant 64-year-old gentleman with history of allergy to Keflex and sulfa , currently on warfarin for an aortic valve replacement who comes to the emergency room for UTI. Patient was noted to have the onset of symptoms yesterday associated with some achiness and dizziness. He was seen in urgent care at which time use diagnosed with UTI. Unfortunately, the pharmacy was clothes when he went to pickler helper his antibiotics. Strangely his also has UTI symptoms. No suspicion of STI according to urgent care or by Burt and his . No recent extended travel or inability to find time to urinate. No recent swimming. Burt is not have fever or chills. He denies hematuria. He is currently on warfarin for his aortic valve. No back pain vomiting. Related Data Home Medications ?Medication ?Instructions ?Recorded ?Confirmed doxycycline monohydrate 100 mg 100 mg PO ONCE PRN 11/17/23 05/30/24 tablet hydrochlorothiazide 25 mg tablet 25 mg PO QDAY 01/30/24 05/30/24 Previous Rx's ?Medication ?Instructions ?Recorded amitriptyline 10 mg tablet 20 mg (2 x 10 mg) PO .Bedtime #180 10/10/23 tabs bupropion HCl 150 mg 24 hr tablet, 150 mg PO DAILY #90 tabs 10/10/23 extended release celecoxib 200 mg capsule 200 mg PO QDAY #90 caps 10/10/23 fluoxetine 40 mg capsule 40 mg PO QAM #90 caps 10/10/23 syringe with needle, safety 3 mL #100 ea 10/10/23 22 gauge x 1 1/2 warfarin 6 mg tablet 6 mg PO QDAY #90 tabs 01/11/24 rosuvastatin 20 mg tablet 20 mg PO QDAY #90 tabs 02/24/24 testosterone enanthate 200 mg/mL 300 mg (1.5 mL) IM .Once a month 03/07/24 intramuscular oil #5 mL ciprofloxacin HCl 500 mg tablet 500 mg PO BID 7 days #14 tabs 05/30/24 Allergies Allergy/AdvReac Type Severity Reaction Status Date / Time atorvastatin Allergy Mild Verified 05/30/24 17:09 sertraline Allergy Mild Anxiety Verified 05/30/24 17:09 cephalexin Allergy Unknown Unknown Verified 05/30/24 17:09 lisinopril Allergy Unknown Cough Verified 05/30/24 17:09 Sulfa (Sulfonamide AdvReac Intermediate Verified 05/30/24 17:09 Antibiotics) Review of Systems Status of ROS: Reports: 6 or more systems reviewed and unremarkable except as noted in History and [facility] History History of squamous cell carcinoma of skin ?Z85.828 - Personal history of other malignant neoplasm of skin (ICD-10) Encounter for screening for malignant neoplasm of prostate ?Z12.5 - Encounter for screening for malignant neoplasm of prostate (ICD-10) Surgical History History of placement of ear tubes ?Z96.22 - Myringotomy tube(s) status (ICD-10) History of cholecystectomy ?Z90.49 - Acquired absence of other specified parts of digestive tract (ICD-10) Social History What is your current living situation?: I presently have a place to live Problems where you live: no known problems In the past 12 months, utilities in danger of being shut off: no In past 12 months, lack of transportation kept you from medical appts, meetings, work, or getting things needed for daily living: no In the past 12 mos, have been you worried that your food would run out before you had money to buy more?: never true In the past 12 mos, the food you bought just didn't last and you didn't have money to buy more?: never true Smoking Status: Former smoker How often do you have a drink containing alcohol: monthly or less AUDIT-C Alcohol total score: 1 Non-prescribed substance use: denies use How often does anyone, including family, friends and others, physically hurt you: never How often does anyone, including family, friends and others, insult or talk down to you: never How often does anyone, including family, friends and others, threaten you with harm: never How often does anyone, including family, friends and others, scream or curse at you: never Little interest or pleasure in doing things: not at all Feeling down, depressed, or hopeless: several days service: No Exam Narrative: Exam Narrative: Alert and oriented. No acute distress. Heart with regular rate and rhythm and lungs clear. Aortic valve click clearly auscultated. No CVA tenderness to percussion abdomen is soft and nontender. Const: Vital Signs, click to edit/add: Vital Signs - 24 hr 05/30/24 22:09 Temperature 97.6 F Pulse Rate [Left P ulse Oximeter] 83 Respiratory Rate 16 Blood Pressure [Ri ght Upper Arm] 149/77 H Pulse Oximetry 95 Oxygen Delivery Me thod Room Air Documenting provider has reviewed patient's vital signs: yes Course Course ED Course: Patient had been diagnosed with UTI earlier today and simply was not able to pickler helper antibiotics. Will continue with Cipro and give patient's 1st dose here in the ED. his prescription has already been sent to the pharmacy. Vital Signs Vital signs: Initial Vital Signs Temperature 97.6 F 05/30/24 22:09 Temperature Source Temporal Artery Scan 05/30/24 22:09 Pulse Rate 83 05/30/24 22:09 Pulse Rhythm Regular 05/30/24 22:09 Respiratory Rate 16 05/30/24 22:09 Blood Pressure 149/77 H 05/30/24 22:09 Blood Pressure Mean 101 05/30/24 22:09 Blood Pressure Position Sitting 05/30/24 22:09 Pulse Oximetry 95 05/30/24 22:09 Oxygen Delivery Method Room Air 05/30/24 22:09 Vital Signs Temperature 97.6 F 05/30/24 22:09 Pulse Rate 83 05/30/24 22:09 Respiratory Rate 16 05/30/24 22:09 Blood Pressure 149/77 H 05/30/24 22:09 Pulse Oximetry 95 05/30/24 22:09 Oxygen Delivery Method Room Air 05/30/24 22:09 Temperature 97.6 F 05/30/24 22:09 Pulse Rate 83 05/30/24 22:09 Respiratory Rate 16 05/30/24 22:09 Blood Pressure 149/77 H 05/30/24 22:09 Pulse Oximetry 95 05/30/24 22:09 Oxygen Delivery Method Room Air 05/30/24 22:09 MDM - Male Genitourinary MDM Narrative Medical decision making narrative: 1. UTI-Cipro 500 mg given in the ED. Patient's symptoms are not severe enough to warrant hospitalization or blood draw. However, I do warn Burt that his INR will possibly increase with antibiotic use and he will need to follow-up with his primary MD for recheck. He was should return or seek medical attention if he is not improving. At this time no concern for STI per patient. I did confirm that urine culture is currently pending. 2. Disposition-home at this time. Return for worsening symptoms and as needed. Medical Records Attestation: I reviewed the patient's medical records. Lab Data Attestation: I reviewed the patient's lab results. Lab results narrative: Nitrate negative, trace leukocyte esterase, moderate amount of WBC. Discharge Plan Discharge Clinical Impression: UTI (urinary tract infection) Qualifiers: Urinary tract infection type: acute cystitis Hematuria presence: without hematuria Qualified Code(s): N30.00 - Acute cystitis without hematuria Patient Disposition: Home, Self-Care Condition: Unchanged Additional Instructions: Your 1st dose of your and not back Cipro was given here in the emergency room. I have confirmed that a urine culture is pending on your urine specimen. Please follow-up with your primary MD for recheck of your INR early next week. Antibiotics will often increase INR readings. Seek medical attention for worsening symptoms, vomiting, fever and as needed. Prescriptions: No Action doxycycline monohydrate 100 mg tablet 100 mg PO ONCE PRN Patient Comments: using for dental work fluoxetine 40 mg capsule 40 mg PO QAM Qty: 90 3RF amitriptyline 10 mg tablet 20 mg PO .Bedtime Qty: 180 3RF bupropion HCl 150 mg tablet extended release 24 hr 150 mg PO DAILY Qty: 90 3RF celecoxib 200 mg capsule 200 mg PO QDAY Qty: 90 3RF (DME) syringe with needle, safety 3 mL 22 gauge x 1 1/2 syringe See Rx Instructions .Route Qty: 100 0RF Rx Instructions: Use as directed with monthly injections ciprofloxacin HCl 500 mg tablet 500 mg PO BID 7 Days Qty: 14 0RF warfarin 6 mg tablet 6 mg PO QDAY Qty: 90 0RF Protocol: Dose Management Condition: Tuesday Dose/Route: 6 mg Instruction: 1 x 6 mg tablet Condition: Tuesday Dose/Route: 6 mg Instruction: 1 x 6 mg tablet Condition: Tuesday Dose/Route: 9 mg Instruction: 1.5 x 6 mg tablets Condition: Tuesday Dose/Route: 6 mg Instruction: 1 x 6 mg tablet Condition: Dose/Route: 6 mg Instruction: 1 x 6 mg tablet Condition: Tuesday Dose/Route: 6 mg Instruction: 1 x 6 mg tablet Condition: Tuesday Dose/Route: 9 mg Instruction: 1.5 x 6 mg tablets Protocol Text: Adjustment Start Date: 05/10/24 INR Value: 2.65 INR Date: 05/09/24 Recheck Date: 06/21/24 Rx Instructions: Patient to take 6 mg by mouth daily, 9mg on Tuesdays and Saturdays hydrochlorothiazide 25 mg tablet 25 mg PO QDAY rosuvastatin 20 mg tablet 20 mg PO QDAY Qty: 90 2RF testosterone enanthate 200 mg/mL oil 300 mg IM .Once a month Qty: 5 4RF Follow Up/Referrals: Kumar Raymond MD [Primary Care Provider] - Stand Alone Forms: [facility] Info Instructions
--- OUTSIDE RECORDS SUMMARY | 2024-05-30 23:25 | XMS_ITS | Clinical Summary ---
Author Organization [facility] Address [place], [place] [address] Care Team Providers Care Housekeeping Cleaner Name Role Phone Kumar Raymond MD Primary Care Provider [phone] Allergies Active Allergy Reactions Criticality Noted Date [...] both ears 03/10/2015 Adenomatous colon polyp 10/04/2014 Overview (10/04/2014): Colonoscopy 09/2014 polyp repeat in 5 years Fatty liver 08/02/2014 Coital headache 07/14/2012 Bicuspid aortic valve 07/14/2012 Low testosterone 11/19/2011 Vitamin D deficiency 11/19/2011 Prediabetes 11/19/2011 Osteoarthritis 11/05/2011 Unspecified essential hypertension 08/18/2007 Presbyopia 09/30/2006 Vitreous degeneration 09/30/2006 Other and unspecified hyperlipidemia 12/03/2005 Resolved Problems Problem Noted Date Diagnosed Date Resolved Date Alcohol abuse 03/10/2015 04/08/2016 Chest pain, unspecified 07/14/201201/10 Headache(784.0) 07/14/2012 07/14/2012 Overview (07/14/2012): Post-coital headaches noted. Abnormal tympanic membrane 11/05/2011 [...] 04/08/2021 04/08/2016, 03/22/2015, 01/22/2014, Additional history exists Pneumococcal series for age 65+ (1 of 1 - PCV) 2024 COVID-19 vaccine series (1 - 2022- season) 2024 Influenza for age 65+ 05/13/2024 08/04/2015 , 09/02/2014, 09/06/2003 Tdap Completed 09/17/2010 Procedures Procedure Name Priority Date/Time Associated Diagnosis Comments LIPID PANEL Routine 04/08/2016 11:38 AM CDT Mixed hyperlipidemia from Last 3 Months or Most Recently Relevant to Health Maintenance Results * LIPID PANEL (04/08/2016 11:38 AM CDT) CHOLESTEROL,TOTAL 189 100 - 199 mg/dL 04/08/2016 12:37 PM CDT [facility] TRIGLYCERIDES 73 <150 mg/dL 04/08/2016 12:37 PM CDT [facility] HDL CHOLESTEROL 51 >40 mg/dL 04/08/2016 12:37 PM CDT [facility] NON-HDL CHOLESTEROL 138 <145 mg/dl 04/08/2016 12:37 PM CDT [facility] CHOL/HDL RATIO 3.71 <4.50 04/08/2016 12:37 PM CDT [facility] LDL CHOLESTEROL 123 <=130 mg/dL 04/08/2016 12:37 PM CDT [facility] PATIENT STATUS NON-FASTI NG 04/08/2016 12:37 PM CDT [facility] Blood BLOOD SPECIMEN / Unknown Venipuncture / Unknown 04/08/2016 11:38 AM CDT 04/08/2016 11:38 AM CDT Yaninck Garnett MD CHEMISTRY [facility] [address] [place] [address], from Last 3 Months or Most Recently Relevant to Health Maintenance Advance Directives * Full Code (Latest Code Status on File) Date Activated Date Inactivated Comments 06/24/2014 7:19 AM 06/24/2014 5:00 PM Care Teams Housekeeping Cleaner Relationship Specialty Start Date End Date Kumar Raymond MD [address] [place] [phone] PCP - General Family Practice 11/17/17
--- OUTSIDE RECORDS SUMMARY | 2024-05-30 23:25 | XMS_ITS | Clinical Summary ---
Author Organization [facility] Address [address] [place] [address] Care Team Providers Care Pipe Testing Technician Name Role Phone Elsewhere, Pcp Primary Care Provider Unavailabl e Source Comments Patient records contain information from all sites at [facility]. For routine questions regarding patient records, call [phone] during business hours, M-F 8:00 AM - 5:00 PM Central Time. Record requests for emergency care only can be directed to [phone] at any time.[facility] Allergies Active Allergy Reactions Criticality Noted [...] (07/17/2019): Added automatically from request for surgery [id number] Palpitations 06/25/2019 Obstructive Sleep Apnea Adult 05/31/2019 Dysfunction Erectile 05/31/2019 Deconditioned 05/31/2019 Anticoagulant Therapy 03/18/2019 Overview (03/18/2019): INR goal: 2.0 - 3.0 Warfarin duration and indication: Aortic mechanical valve replacement requires life-long anticoagulation therapy. After 3 months, however, you can reduce your INR goal to 1.5-2.5. This needs to be discussed with your primary care provider/captain room service to rule out contraindications before changing the [...] Clinical Communication Department of Cardiovascular Medicine in [address] [phone] Mckinley Loredo M.D. Form Review (INR) from Last 3 Months Family History Medical [...] pur e alcohol) 1 wine per month [facility] Utilities Answer Date Recorded In the past 12 months has e electric, gas, oil, or water company threatened to shut off services in your home? No 10/24/2023 Social Connection and Isolation Panel [NHANES] A nswer Date Recorded In a typical week, how many times do you talk on the phone with family, friends, or neighbors? Twice a week 03/06/2020 Frequency of Social Gatherings with Friends and Family Not on file 03/06/2020 Attends Zoroastrianism Services Not on file 03/06 Active Member [...] and heating? Somewhat hard 03/06/2020 [facility] of Occupat ional Health - Occupational Stress [...] your living situation today? I have a [facility] place to live 10/24/2023 Education Answer Date Recorded What is the highest level of school you have completed or the highest degree you have received? Associate degree: occupational, technical, or vocational program 03/06/2020 Sex and Gender Information Value Date Recorded Sex Assigned at Male 07/17/2019 7:45 AM LAWN CARE SPECIALIST Gender Identity Male 03/05/2019 1:37 PM CDT Sexual Orientation Choose not to disclose 2018 7:45 AM LAWN CARE SPECIALIST Last Filed Vital Signs Vital Sign Reading Time Taken Comments Blood Pressure 161/96 01/18/2024 1:36 PM CDT Pulse 70 01/18/2024 1:34 PM CDT Temperature 36.4 ??C (97.5 ??F) 01/18/2024 1:34 PM CD T Respiratory Rate 16 08/13/2020 1:30 PM LAWN CARE SPECIALIST Oxygen Saturation 94% 01/18/2024 1:34 PM CDT Inhaled Oxygen Concentration - - Weight 96.6 kg (212 lb 15.4 oz) 01/18/2024 1:34 PM CDT Height 176 cm (5' 9.29) 08/13/2020 1:30 PM LAWN CARE SPECIALIST Body Mass Index 31.19 08/13/2020 1:30 PM LAWN CARE SPECIALIST Plan of Treatment Upcoming Encounters Date Type Department Care Team (Latest Contact Info) Description 06/07/2024 12:00 PM CDT Appointment Department of Laboratory Medicine in [address] [phone] Mckinley Loredo M.D. [address] [place] [phone] 06/07/2024 12:30 PM CDT Appointment Department of Radiology in [address] [phone] Mckinley Loredo M.D. [address] [place] [phone] Discharge Disposition: Home or Self Care 06/13/2024 11:45 AM CDT Office Visit Department of Cardiovascular Diseases in [address] [phone] Mckinley Loredo M.D. [address] [place] [phone] Discharge Disposition: Home or Self Care Health Maintenance Due Date Last Done Comments Abdominal Aortic Aneurysm (A AA) Screen 1959 CT Colonography 1959 Cologuard 1959 Colonoscopy 1959 Colorectal Cancer Screening 1959 FIT 1959 HIV Screening 1959 Hepatitis C Screening 1959 Zoster Vaccines (1 of 2) 2009 Fasting Glucose for Diabetes Screening 03/21/2022 03/21/2019, 03/20/2019, 03/19/2019, Additional history exists Depression Screening (Annual PHQ-2) 09/12/2023 Fall Risk Screen (Annual) 2024 Pneumococcal vaccine (65+ ye ars) (1 of 1 - PCV) 2024 Office Visit for Blood Press ure Check / Re-check 04/19/2024 01/18/2024 COVID-19 Vaccine (2022-2 4 season) 2024 10/10/2023, 07/18/2022, 08/24/2021, Additional history exists Influenza Vaccine (#1) 2024 , 07/18/2022, 07/06/2021, Additional history exists DTaP,Tdap,and Td Vaccines (3 - Td or Tdap) 07/24/2030 07/24/2020, 09/17/2010, 12/04/2002 Medical Devices Implanted Type Area Janitor Custodian Device Identifier Shelf Expiration Date Model / Serial / Lot Vlv Aort [facility] 25 - [id number] - [id number] Implanted:Qty : 1 on 03/16/2019 by Goran Espinoza M.D. at [facility] Cardiac Valve Prosthesis Left: Heart [employer] 12/11/2021 ONXAAP-2 5 / [id number] / Description:Aortic Valve Pos ition (Composite Graft included) Tb Vnt Drv Twin 1.27x1.37x4.5 - [id number] Implanted:Qty : 1 on 08/28/2019 by Peter Spear M.D. at [facility] Ear Tubes (e.g. PE Tubes) [employer] Eliza [id number] / / Tb Vnt Drv Twin 1.27x1.37x4.5 - [id number] Implanted:Qty : 1 on 08/28/2019 by Peter Spear M.D. at [facility] Ear Tubes (e.g. PE Tubes) [facility] Eliza [id number] / / Sut Fast Crk Qck Ld Sut Fast - [id number] Implanted:Qty : 6 on 03/16/2019 by Goran Espinoza M.D. at [facility] Hardware e.g. pins/screws/r ods Left: Heart [employer] [id number] / / Description:W/ Aortic Valve Prosthetic Sut Fast Crk Qck Ld Sut Fast - [id number] Implanted:Qty : 6 on 03/16/2019 by Goran Espinoza M.D. at [facility] Hardware e.g. pins/screws/r ods Left: Heart [employer] [id number] / / Description:W/ Aortic Valve Prosthetic Dev Crk Sut Blunt Crv - [id number] Implanted:Qty : 1 on 03/16/2019 by Goran Espinoza M.D. at [facility] Hardware e.g. pins/screws/r ods Left: Heart [employer] [id number] 12/10/2020 [id number] / / [id number] Description:W/ Aortic Valve Prosthetic Dev Crk Sut Blunt Crv - [id number] Implanted:Qty : 1 on 03/16/2019 by Goran Espinoza M.D. at [facility] Hardware e.g. pins/screws/r ods Left: Heart [employer] [id number] 12/10/2020 [id number] / / [id number] Description:W/ Aortic Valve Prosthetic Dev Crk Sut Blunt Crv - [id number] Implanted:Qty : 1 on 03/16/2019 by Goran Espinoza M.D. at [facility] Hardware e.g. pins/screws/r ods Left: Heart [employer] [id number] 12/10/2020 [id number] / / [id number] Description:W/ Aortic Valve Prosthetic Procedures Procedure Name [...] the 2009 CKD_EPI creatinine equation. eGFR-Black/Afric an Armenian 70 >=60 mL/min/BSA 03/21/2019 10:15 AM CDT Comment: ----ADDITIONAL INFORMATION---- Estimated GFR calculated using the 2009 CKD_EPI creatinine equation. Calcium, Total, S 8.8 8.6 - 10.0 mg/dL 03/21/2019 10:15 AM CDT Glucose, S 124 70 - 140 mg/dL 03/21/2019 10:15 AM CDT Blood (Blood, Arterial) 03/21/2019 8:08 AM CDT 03/21/2019 8:42 AM CDT Alcira Cordon APRN, C.N.P., M.S.N. LAB BLOOD ADD-ON [facility] [address] [place], [place] [address] from Last 3 Months or Most Recently Relevant to Health Maintenance Advance Directives For more information, please contact: [phone] * Full Code (Latest Code Status on File) Date Activated Date Inactivated Comments 03/16/2019 1:51 PM 03/21/2019 3:22 PM Question Answer Comments Full Code: Discussed Care Teams Pipe Testing Technician Relationship Specialty Start Date End Date Elsewhere, Pcp PCP - General Internal Medicine 03/21/19
--- OUTSIDE RECORDS SUMMARY | 2024-05-30 23:25 | XMS_ITS | Referral Summary ---
Author Organization [facility] Address [address] [place] [address] Care Team Providers Care Information Security Architect Name Role Phone Elsewhere, Pcp Primary Care Provider Unavailabl e Source Comments Patient records contain information from all sites at [facility]. For routine questions regarding patient records, call [phone] during business hours, M-F 8:00 AM - 5:00 PM Central Time. Record requests for emergency care only can be directed to [phone] at any time.[facility] Encounters Date Type Department Care Team Description 03/05/2024 Clinical Communication Department of Cardiovascular Medicine in [place], [place] [address] [place] [phone] Mckinley Loredo M.D. Form Review (INR) from Last 3 Months Allergies Active Allergy [...] (07/17/2019): Added automatically from request for surgery [id number] Palpitations 06/25/2019 Obstructive Sleep Apnea Adult 05/31/2019 Dysfunction Erectile 05/31/2019 Deconditioned 05/31/2019 Anticoagulant Therapy 03/18/2019 Overview (03/18/2019): INR goal: 2.0 - 3.0 Warfarin duration and indication: Aortic mechanical valve replacement requires life-long anticoagulation therapy. After 3 months, however, you can reduce your INR goal to 1.5-2.5. This needs to be discussed with your primary care provider/kiln burner helper to rule out contraindications before changing the [...] alcohol) 1 wine per month [facility] Utilities Answer Date Recorded In the past [...] and Family Not on file 03/06/2020 Attends Confucianism Services Not on file 03/06 Active Member [...] medical care, and heating? Somewhat hard 03/06/2020 [facility] of Occupat ional Health - Occupational Stress [...] your living situation today? I have a [facility] place to live 10/24/2023 Education Answer Date Recorded What is the highest level of school you have completed or the highest degree you have received? Associate degree: occupational, technical, or vocational program 03/06/2020 Sex and Gender Information Value Date Recorded Sex Assigned at Male 07/17/2019 7:45 AM REBRANDER Gender Identity Male 03/05/2019 1:37 PM CDT Sexual Orientation Choose not to disclose 2018 7:45 AM REBRANDER Last Filed Vital Signs Vital Sign Reading Time Taken Comments Blood Pressure 161/96 01/18/2024 1:36 PM CDT Pulse 70 01/18/2024 1:34 PM CDT Temperature 36.4 ??C (97.5 ??F) 01/18/2024 1:34 PM CD T Respiratory Rate 16 08/13/2020 1:30 PM REBRANDER Oxygen Saturation 94% 01/18/2024 1:34 PM CDT Inhaled Oxygen Concentration - - Weight 96.6 kg (212 lb 15.4 oz) 01/18/2024 1:34 PM CDT Height 176 cm (5' 9.29) 08/13/2020 1:30 PM REBRANDER Body Mass Index 31.19 08/13/2020 1:30 PM REBRANDER Plan of Treatment Upcoming Encounters Date Type Department Care Team (Latest Contact Info) Description 06/07/2024 12:00 PM CDT Appointment Department of Laboratory Medicine in [address] [phone] Mckinley Loredo M.D. [address] [place] [phone] 06/07/2024 12:30 PM CDT Appointment Department of Radiology in [address] [phone] Mckinley Loredo M.D. [address] [place] [phone] Discharge Disposition: Home or Self Care 06/13/2024 11:45 AM CDT Office Visit Department of Cardiovascular Diseases in [address] [phone] Mckinley Loredo M.D. [address] [place] [phone] Discharge Disposition: Home or Self Care Medical Devices Implanted Type Area Branch Account Executive Device Identifier Shelf Expiration Date Model / Serial / Lot Vlv Aort [facility] 25 - [id number] - [id number] Implanted:Qty : 1 on 03/16/2019 by Goran Espinoza M.D. at [facility] Cardiac Valve Prosthesis Left: Heart [employer] 12/11/2021 ONXAAP-2 5 / [id number] / Description:Aortic Valve Pos ition (Composite Graft included) Tb Vnt Drv Twin 1.27x1.37x4.5 - [id number] Implanted:Qty : 1 on 08/28/2019 by Peter Spear M.D. at [facility] Ear Tubes (e.g. PE Tubes) [employer] Eliza [id number] / / Tb Vnt Drv Twin 1.27x1.37x4.5 - [id number] Implanted:Qty : 1 on 08/28/2019 by Peter Spear M.D. at [facility] Ear Tubes (e.g. PE Tubes) [employer] Eliza [id number] / / Sut Fast Crk Qck Ld Sut Fast - [id number] Implanted:Qty : 6 on 03/16/2019 by Goran Espinoza M.D. at [facility] Hardware e.g. pins/screws/r ods Left: Heart [employer] [id number] / / Description:W/ Aortic Valve Prosthetic Sut Fast Crk Qck Ld Sut Fast - [id number] Implanted:Qty : 6 on 03/16/2019 by Goran Espinoza M.D. at [facility] Hardware e.g. pins/screws/r ods Left: Heart [employer] [id number] / / Description:W/ Aortic Valve Prosthetic Dev Crk Sut Blunt Crv - [id number] Implanted:Qty : 1 on 03/16/2019 by Goran Espinoza M.D. at [facility] Hardware e.g. pins/screws/r ods Left: Heart [employer] [id number] 12/10/2020 [id number] / / [id number] Description:W/ Aortic Valve Prosthetic Dev Crk Sut Blunt Crv - [id number] Implanted:Qty : 1 on 03/16/2019 by Goran Espinoza M.D. at [facility] Hardware e.g. pins/screws/r ods Left: Heart [employer] [id number] 12/10/2020 [id number] / / [id number] Description:W/ Aortic Valve Prosthetic Dev Crk Sut Blunt Crv - [id number] Implanted:Qty : 1 on 03/16/2019 by Goran Espinoza M.D. at [facility] Hardware e.g. pins/screws/r ods Left: Heart [employer] [id number] 12/10/2020 [id number] / / [id number] Description:W/ Aortic Valve Prosthetic Procedures Procedure Name [...] the 2009 CKD_EPI creatinine equation. eGFR-Black/Afric an Malaysian 70 >=60 mL/min/BSA 03/21/2019 10:15 AM CDT Comment: ----ADDITIONAL INFORMATION---- Estimated GFR calculated using the 2009 CKD_EPI creatinine equation. Calcium, Total, S 8.8 8.6 - 10.0 mg/dL 03/21/2019 10:15 AM CDT Glucose, S 124 70 - 140 mg/dL 03/21/2019 10:15 AM CDT Blood (Blood, Arterial) 03/21/2019 8:08 AM CDT 03/21/2019 8:42 AM CDT Alcira Cordon APRN, C.N.P., M.S.N. LAB BLOOD ADD-ON [facility] [address] from Last 3 Months or Most Recently Relevant to Health Maintenance Advance Directives For more information, please contact: [phone] * Full Code (Latest Code Status on File) Date Activated Date Inactivated Comments 03/16/2019 1:51 PM 03/21/2019 3:22 PM Question Answer Comments Full Code: Discussed Care Teams Information Security Architect Relationship Specialty Start Date End Date Elsewhere, Pcp PCP - General Internal Medicine 03/21/19
--- OUTSIDE RECORDS SUMMARY | 2024-05-30 23:25 | XMS_ITS | Encounter Summary ---
Author Organization [facility] Address [address] [place] [address] Care Team Providers Care Mixer Blender Name Role Phone Elsewhere, Pcp Primary Care Provider Unavailabl e Reason for Visit * Reason Onset Date Comments Form Review 03/05/2024 INR Encounter Details Date Type Department Care Team (Latest Contact Info) Description 03/05/2024 Clinical Communication Department of Cardiovascular Medicine in [place], [place] [address] [place] [phone] Mckinley Loredo M.D. [address] [place] [phone] Form Review (INR) Social History Tobacco Use Types Packs/Day Years Used Date Smoking Tobacco: Former Cigarettes Q uit: 1991 Smokeless Tobacco: Never Alcohol Use Standard Drinks/Week Comments Not Currently 0 (1 standard drink = 0.6 oz pur e alcohol) [address] [facility] Utilities Answer Date Recorded In the past 12 months has [employer], gas, oil, or water [employer] threatened to shut off services in your home? No 10/24/2023 Social Connection and Isolation Panel [NHANES] A nswer Date Recorded In a typical week, how many times do you talk on the phone with family, friends, or neighbors? Twice a week 03/06/2020 Frequency of Social Gatherings with Friends and Family Not on file 03/06/2020 Attends Sikh Services Not on file 03/06 Active Member [...] medical care, and heating? Somewhat hard 03/06/2020 [facility] of Occupat ional Health - Occupational Stress [...] your living situation today? I have a [facility] place to live 10/24/2023 Education Answer Date Recorded What is the highest level of school you have completed or the highest degree you have received? Associate degree: occupational, technical, or vocational program 03/06/2020 Sex and Gender Information Value Date Recorded Sex Assigned at Male 07/17/2019 7:45 AM FILM WASHER Gender Identity Male 03/05/2019 1:37 PM CDT Sexual Orientation Choose not to disclose 2018 7:45 AM FILM WASHER documented as of this encounter Miscellaneous Notes * Telephone Encounter - Stephanie Martínez - 03/05/2024 4:13 PM CDT INR received today. Called [facility] number to ask where this needed to go. Was informed by Ngoc that we didn't need to do anything with it being there was no pcp. Forwarded the INR to [facility] Primary Care Nurses documented in this encounter Plan of Treatment Upcoming Encounters Date Type Department Care Team (Latest Contact Info) Description 06/07/2024 12:00 PM CDT Appointment Department of Laboratory Medicine in [address] [phone] Mckinley Loredo M.D. [address] [place] [phone] 06/07/2024 12:30 PM CDT Appointment Department of Radiology in [address] [phone] Mckinley Loredo M.D. [address] [place] [phone] Discharge Disposition: Home or Self Care 06/13/2024 11:45 AM CDT Office Visit Department of Cardiovascular Diseases in [address] [phone] Mckinley Loredo M.D. [address] [place] [phone] Discharge Disposition: Home or Self Care documented as of this encounter Visit Diagnoses Not on filedocumented in this encounter Care Teams Mixer Blender Relationship Specialty Start Date End Date Elsewhere, Pcp PCP - General Internal Medicine 03/21/19 documented as of this encounter
--- OUTSIDE RECORDS SUMMARY | 2024-05-30 23:25 | XMS_ITS ---
Author Organization [facility] Address [address] [place] [address] Care Team Providers Care Hot Knife Cutter Name Role Phone Unavailable Unavailable Unavailable Surgery Details Not on file Complications Check Surgery Details section. Procedure Estimated Blood Loss Check Surgery Details section. Procedure Findings Check Surgery Details section. Procedure Specimens Taken Check Surgery Details section.
[2024-05-30] MEDS: CIPROFLOXACIN 500 MG TABLET PO (23:37)
== END 2024-05-30 23:43 | disposition home or self-care (01) ==
PROVIDERS: Emergency Provider Family Medicine; PCP Family Medicine
DX: N30.00 Acute cystitis without hematuria (principal)
CPT/HCPCS: 87086; 99283; A9270

== ENCOUNTER 2024-06-04 14:05 | Outpatient (CLI) | payer MEDICARE, SELFPAY ==
--- OUTSIDE RECORDS SUMMARY | 2024-06-04 14:07 | XMS_ITS ---
Author Organization [facility] Address [address] [place] [address] Care Team Providers Care Outcomes Analyst Name Role Phone Unavailable Unavailable Unavailable Surgery Details Not on file Complications Check Surgery Details section. Procedure Estimated Blood Loss Check Surgery Details section. Procedure Findings Check Surgery Details section. Procedure Specimens Taken Check Surgery Details section.
--- OUTSIDE RECORDS SUMMARY | 2024-06-04 14:07 | XMS_ITS | Encounter Summary ---
Author Organization [facility] Address [address] [place] [phone] Care Team Providers Care Workers Compensation Adjuster Name Role Phone Elsewhere, Pcp Primary Care Provider Unavailabl e Reason for Visit * Reason Onset Date Comments Form Review 03/05/2024 INR Encounter Details Date Type Department Care Team (Latest Contact Info) Description 03/05/2024 Clinical Communication Department of Cardiovascular Medicine in [place], [place] [address] [place] [phone] Mckinley Loredo M.D. [address] [place] [phone] Form Review (INR) Social History Tobacco Use Types Packs/Day Years Used Date Smoking Tobacco: Former Cigarettes Q uit: 1991 Smokeless Tobacco: Never Alcohol Use Standard Drinks/Week Comments Not Currently 0 (1 standard drink = 0.6 oz pur e alcohol) 1 wine per month [facility] Utilities Answer Date Recorded In the past 12 months has [employer], gas, oil, or water [employer] threatened to shut off services in your home? No 10/24/2023 Social Connection and Isolation Panel [NHANES] A nswer Date Recorded In a typical week, how many times do you talk on the phone with family, friends, or neighbors? Twice a week 03/06/2020 Frequency of Social Gatherings with Friends and Family Not on file 03/06/2020 Attends Taoist Services Not on file 03/06 Active Member [...] medical care, and heating? Somewhat hard 03/06/2020 [facility] of Occupat ional Health - Occupational Stress [...] your living situation today? I have a [facility] place to live 10/24/2023 Education Answer Date Recorded What is the highest level of school you have completed or the highest degree you have received? Associate degree: occupational, technical, or vocational program 03/06/2020 Sex and Gender Information Value Date Recorded Sex Assigned at Male 07/17/2019 7:45 AM SHERIFF'S SERGEANT Gender Identity Male 03/05/2019 1:37 PM CDT Sexual Orientation Choose not to disclose 2018 7:45 AM SHERIFF'S SERGEANT documented as of this encounter Miscellaneous Notes * Telephone Encounter - Stephanie Martínez - 03/05/2024 4:13 PM CDT INR received today. Called [facility] number to ask where this needed to go. Was informed by Ngoc that we didn't need to do anything with it being there was no pcp. Forwarded the INR to [facility] Primary Care Nurses documented in this encounter Plan of Treatment Upcoming Encounters Date Type Department Care Team (Latest Contact Info) Description 06/07/2024 12:00 PM CDT Appointment Department of Laboratory Medicine in [address] [phone] Mckinley Loredo M.D. [address] [place] [phone] 06/07/2024 12:30 PM CDT Appointment Department of Radiology in [address] [phone] Mckinley Loredo M.D. [address] [place] [phone] Discharge Disposition: Home or Self Care 06/13/2024 11:45 AM CDT Office Visit Department of Cardiovascular Diseases in [address] [phone] Mckinley Loredo M.D. [address] [place] [phone] Discharge Disposition: Home or Self Care documented as of this encounter Visit Diagnoses Not on filedocumented in this encounter Care Teams Workers Compensation Adjuster Relationship Specialty Start Date End Date Elsewhere, Pcp PCP - General Internal Medicine 03/21/19 documented as of this encounter
--- OUTSIDE RECORDS SUMMARY | 2024-06-04 14:07 | XMS_ITS | Clinical Summary ---
Author Organization [facility] Address [address] [place] [address] Care Team Providers Care Director Hospice Operations Name Role Phone Elsewhere, Pcp Primary Care Provider Unavailabl e Source Comments Patient records contain information from all sites at [facility]. For routine questions regarding patient records, call [phone] during business hours, M-F 8:00 AM - 5:00 PM Central Time. Record requests for emergency care only can be directed to [phone] at any time.[facility] Allergies Active Allergy Reactions Criticality Noted Date [...] (07/17/2019): Added automatically from request for surgery [id number] Palpitations 06/25/2019 Obstructive Sleep Apnea Adult 05/31/2019 Dysfunction Erectile 05/31/2019 Deconditioned 05/31/2019 Anticoagulant Therapy 03/18/2019 Overview (03/18/2019): INR goal: 2.0 - 3.0 Warfarin duration and indication: Aortic mechanical valve replacement requires life-long anticoagulation therapy. After 3 months, however, you can reduce your INR goal to 1.5-2.5. This needs to be discussed with your primary care provider/combustion analyst to rule out contraindications before changing the [...] Communication Department of Cardiovascular Medicine in [address] [phone] Mckinley Loredo M.D. Form Review (INR) from [...] pur e alcohol) 1 wine per month [facility] Utilities Answer Date Recorded In [...] and Family Not on file 03/06/2020 Attends [employer] Not on file 03/06 Active Member [...] medical care, and heating? Somewhat hard 03/06/2020 [facility] of Occupat ional Health - Occupational Stress [...] your living situation today? [facility] 10/24/2023 Education Answer Date Recorded What is the highest level of school you have completed or the highest degree you have received? Associate degree: occupational, technical, or vocational program 03/06/2020 Sex and Gender Information Value Date Recorded Sex Assigned at Male 07/17/2019 7:45 AM STONE CLEANER Gender Identity Male 03/05/2019 1:37 PM CDT Sexual Orientation Choose not to disclose 2018 7:45 AM STONE CLEANER Last Filed Vital Signs Vital Sign Reading Time Taken Comments Blood Pressure 161/96 01/18/2024 1:36 PM CDT Pulse 70 01/18/2024 1:34 PM CDT Temperature 36.4 ??C (97.5 ??F) 01/18/2024 1:34 PM CD T Respiratory Rate 16 08/13/2020 1:30 PM STONE CLEANER Oxygen Saturation 94% 01/18/2024 1:34 PM CDT Inhaled Oxygen Concentration - - Weight 96.6 kg (212 lb 15.4 oz) 01/18/2024 1:34 PM CDT Height 176 cm (5' 9.29) 08/13/2020 1:30 PM STONE CLEANER Body Mass Index 31.19 08/13/2020 1:30 PM STONE CLEANER Plan of Treatment Upcoming Encounters Date Type Department Care Team (Latest Contact Info) Description 06/07/2024 12:00 PM CDT Appointment Department of Laboratory Medicine in [address] [phone] Mckinley Loredo M.D. [address] [place] [phone] 06/07/2024 12:30 PM CDT Appointment Department of Radiology in [address] [phone] Mckinley Loredo M.D. [address] [place] [phone] Discharge Disposition: Home or Self Care 06/13/2024 11:45 AM CDT Office Visit Department of Cardiovascular Diseases in [address] [phone] Mckinley Loredo M.D. [address] [place] [phone] Discharge Disposition: Home or Self Care Health [...] Check / Re-check 04/19/2024 01/18/2024 COVID-19 Vaccine (6 2023-2 5 season) 2024 10/10/2023, 07/18/2022, 08/24/2021, Additional history exists Influenza Vaccine (#1) 2024 , 07/18/2022, 07/06/2021, Additional history exists DTaP,Tdap,and Td Vaccines (3 - Td or Tdap) 07/24/2030 07/24/2020, 09/17/2010, 12/04/2002 Medical Devices Implanted Type Area Channel Process Plant Operator Device Identifier Shelf Expiration Date Model / Serial / Lot Vlv Aort [facility] 25 - [id number] - [id number] Implanted:Qty : 1 on 03/16/2019 by Goran Espinoza M.D. at [facility] Cardiac Valve Prosthesis Left: Heart [employer] 12/11/2021 ONXAAP-2 5 / [id number] / Description:Aortic Valve Pos ition (Composite Graft included) Tb Vnt Drv Twin 1.27x1.37x4.5 - [id number] Implanted:Qty : 1 on 08/28/2019 by Peter Spear M.D. at [facility] Ear Tubes (e.g. PE Tubes) [employer] [id number] / / Tb Vnt Drv Twin 1.27x1.37x4.5 - [id number] Implanted:Qty : 1 on 08/28/2019 by Peter Spear M.D. at [facility] Ear Tubes (e.g. PE Tubes) [facility] [id number] / / Sut Fast Crk Qck Ld Sut Fast - [id number] Implanted:Qty : 6 on 03/16/2019 by Goran Espinoza M.D. at [facility] Hardware e.g. pins/screws/r ods Left: Heart [employer] [id number] / / Description:W/ Aortic Valve Prosthetic Sut Fast Crk Qck Ld Sut Fast - [id number] Implanted:Qty : 6 on 03/16/2019 by Goran Espinoza M.D. at [facility] Hardware e.g. pins/screws/r ods Left: Heart [employer] [id number] / / Description:W/ Aortic Valve Prosthetic Dev Crk Sut Blunt Crv - [id number] Implanted:Qty : 1 on 03/16/2019 by Goran Espinoza M.D. at [facility] Hardware e.g. pins/screws/r ods Left: Heart [employer] [id number] 12/10/2020 [id number] / / [id number] Description:W/ Aortic Valve Prosthetic Dev Crk Sut Blunt Crv - [id number] Implanted:Qty : 1 on 03/16/2019 by Goran Espinoza M.D. at [facility] Hardware e.g. pins/screws/r ods Left: Heart [employer] [id number] 12/10/2020 [id number] / / [id number] Description:W/ Aortic Valve Prosthetic Dev Crk Sut Blunt Crv - [id number] Implanted:Qty : 1 on 03/16/2019 by Goran Espinoza M.D. at [facility] Hardware e.g. pins/screws/r ods Left: Heart [employer] [id number] 12/10/2020 [id number] / / [id number] Description:W/ Aortic Valve Prosthetic Procedures Procedure Name [...] the 2009 CKD_EPI creatinine equation. eGFR-Black/Afric an [place] Islander 70 >=60 mL/min/BSA 03/21/2019 10:15 AM CDT Comment: ----ADDITIONAL INFORMATION---- Estimated GFR calculated using the 2009 CKD_EPI creatinine equation. Calcium, Total, S 8.8 8.6 - 10.0 mg/dL 03/21/2019 10:15 AM CDT Glucose, S 124 70 - 140 mg/dL 03/21/2019 10:15 AM CDT Blood (Blood, Arterial) 03/21/2019 8:08 AM CDT 03/21/2019 8:42 AM CDT Alcira Cordon APRN, C.N.P., M.S.N. LAB BLOOD ADD-ON [facility] [address] [place], [place] [address] from Last 3 Months or Most Recently Relevant to Health Maintenance Advance Directives For more information, please contact: [phone] * Full Code (Latest Code Status on File) Date Activated Date Inactivated Comments 03/16/2019 1:51 PM 03/21/2019 3:22 PM Question Answer Comments Full Code: Discussed Care Teams Director Hospice Operations Relationship Specialty Start Date End Date Elsewhere, Pcp PCP - General Internal Medicine 03/21/19
--- OUTSIDE RECORDS SUMMARY | 2024-06-04 14:07 | XMS_ITS | Referral Summary ---
Author Organization [facility] Address [address] [place] [address] Care Team Providers Care Developmental Training Counselor Name Role Phone Elsewhere, Pcp Primary Care Provider Unavailabl e Source Comments Patient records contain information from all sites at [facility]. For routine questions regarding patient records, call [phone] during business hours, M-F 8:00 AM - 5:00 PM Central Time. Record requests for emergency care only can be directed to [phone] at any time.[facility] Encounters Date Type Department Care Team Description 03/05/2024 Clinical Communication Department of Cardiovascular Medicine in [place], [place] [address] [place] [phone] Mckinley Loredo M.D. Form Review (INR) [...] (07/17/2019): Added automatically from request for surgery [id number] Palpitations 06/25/2019 Obstructive Sleep Apnea Adult 05/31/2019 Dysfunction Erectile 05/31/2019 Deconditioned 05/31/2019 Anticoagulant Therapy 03/18/2019 Overview (03/18/2019): INR goal: 2.0 - 3.0 Warfarin duration and indication: Aortic mechanical valve replacement requires life-long anticoagulation therapy. After 3 months, however, you can reduce your INR goal to 1.5-2.5. This needs to be discussed with your primary care provider/accounting instructor to rule out contraindications before changing the [...] pur e alcohol) 1 wine per month [facility] Utilities Answer Date Recorded In [...] medical care, and heating? Somewhat hard 03/06/2020 [facility] of Occupat ional Health - Occupational Stress [...] your living situation today? [facility] 10/24/2023 Education Answer Date Recorded What is the highest level of school you have completed or the highest degree you have received? Associate degree: occupational, technical, or vocational program 03/06/2020 Sex and Gender Information Value Date Recorded Sex Assigned at Male 07/17/2019 7:45 AM STRATEGIC PARTNER DEVELOPMENT MANAGER Gender Identity Male 03/05/2019 1:37 PM CDT Sexual Orientation Choose not to disclose 2018 7:45 AM STRATEGIC PARTNER DEVELOPMENT MANAGER Last Filed Vital Signs Vital Sign Reading Time Taken Comments Blood Pressure 161/96 01/18/2024 1:36 PM CDT Pulse 70 01/18/2024 1:34 PM CDT Temperature 36.4 ??C (97.5 ??F) 01/18/2024 1:34 PM CD T Respiratory Rate 16 08/13/2020 1:30 PM STRATEGIC PARTNER DEVELOPMENT MANAGER Oxygen Saturation 94% 01/18/2024 1:34 PM CDT Inhaled Oxygen Concentration - - Weight 96.6 kg (212 lb 15.4 oz) 01/18/2024 1:34 PM CDT Height 176 cm (5' 9.29) 08/13/2020 1:30 PM STRATEGIC PARTNER DEVELOPMENT MANAGER Body Mass Index 31.19 08/13/2020 1:30 PM STRATEGIC PARTNER DEVELOPMENT MANAGER Plan of Treatment Upcoming Encounters Date Type Department Care Team (Latest Contact Info) Description 06/07/2024 12:00 PM CDT Appointment Department of Laboratory Medicine in [address] [phone] Mckinley Loredo M.D. [address] [place] [phone] 06/07/2024 12:30 PM CDT Appointment Department of Radiology in [address] [phone] Mckinley Loredo M.D. [address] [place] [phone] Discharge Disposition: Home or Self Care 06/13/2024 11:45 AM CDT Office Visit Department of Cardiovascular Diseases in [address] [phone] Mckinley Loredo M.D. [address] [place] [phone] Discharge Disposition: Home or Self Care Medical Devices Implanted Type Area Head Resident Device Identifier Shelf Expiration Date Model / Serial / Lot Vlv Aort [facility] 25 - [id number] - [id number] Implanted:Qty : 1 on 03/16/2019 by Goran Espinoza M.D. at [facility] Cardiac Valve Prosthesis Left: Heart [employer] 12/11/2021 ONXAAP-2 5 / [id number] / Description:Aortic Valve Pos ition (Composite Graft included) Tb Vnt Drv Twin 1.27x1.37x4.5 - [id number] Implanted:Qty : 1 on 08/28/2019 by Peter Spear M.D. at [facility] Ear Tubes (e.g. PE Tubes) [employer] [id number] / / Tb Vnt Drv Twin 1.27x1.37x4.5 - [id number] Implanted:Qty : 1 on 08/28/2019 by Peter Spear M.D. at [facility] Ear Tubes (e.g. PE Tubes) [employer] [id number] / / Sut Fast Crk Qck Ld Sut Fast - [id number] Implanted:Qty : 6 on 03/16/2019 by Goran Espinoza M.D. at [facility] Hardware e.g. pins/screws/r ods Left: Heart [employer] [id number] / / Description:W/ Aortic Valve Prosthetic Sut Fast Crk Qck Ld Sut Fast - [id number] Implanted:Qty : 6 on 03/16/2019 by Goran Espinoza M.D. at [facility] Hardware e.g. pins/screws/r ods Left: Heart [employer] [id number] / / Description:W/ Aortic Valve Prosthetic Dev Crk Sut Blunt Crv - [id number] Implanted:Qty : 1 on 03/16/2019 by Goran Espinoza M.D. at [facility] Hardware e.g. pins/screws/r ods Left: Heart [employer] [id number] 12/10/2020 [id number] / / [id number] Description:W/ Aortic Valve Prosthetic Dev Crk Sut Blunt Crv - [id number] Implanted:Qty : 1 on 03/16/2019 by Goran Espinoza M.D. at [facility] Hardware e.g. pins/screws/r ods Left: Heart [employer] [id number] 12/10/2020 [id number] / / [id number] Description:W/ Aortic Valve Prosthetic Dev Crk Sut Blunt Crv - [id number] Implanted:Qty : 1 on 03/16/2019 by Goran Espinoza M.D. at [facility] Hardware e.g. pins/screws/r ods Left: Heart [employer] [id number] 12/10/2020 [id number] / / [id number] Description:W/ Aortic Valve Prosthetic Procedures Procedure Name [...] the 2009 CKD_EPI creatinine equation. eGFR-Black/Afric an [place]ak 70 >=60 mL/min/BSA 03/21/2019 10:15 AM CDT Comment: ----ADDITIONAL INFORMATION---- Estimated GFR calculated using the 2009 CKD_EPI creatinine equation. Calcium, Total, S 8.8 8.6 - 10.0 mg/dL 03/21/2019 10:15 AM CDT Glucose, S 124 70 - 140 mg/dL 03/21/2019 10:15 AM CDT Blood (Blood, Arterial) 03/21/2019 8:08 AM CDT 03/21/2019 8:42 AM CDT Alcira Cordon APRN, C.N.P., M.S.N. LAB BLOOD ADD-ON [facility] [address] from Last 3 Months or Most Recently Relevant to Health Maintenance Advance Directives For more information, please contact: [phone] * Full Code (Latest Code Status on File) Date Activated Date Inactivated Comments 03/16/2019 1:51 PM 03/21/2019 3:22 PM Question Answer Comments Full Code: Discussed Care Teams Developmental Training Counselor Relationship Specialty Start Date End Date Elsewhere, Pcp PCP - General Internal Medicine 03/21/19
--- OUTSIDE RECORDS SUMMARY | 2024-06-04 14:08 | XMS_ITS | Clinical Summary ---
Author Organization [facility] Address [place], [place] [address] Care Team Providers Care Blending Machine Operator Name Role Phone Kumar Raymond MD Primary Care Provider [phone] Allergies Active Allergy Reactions Criticality Noted Date [...] - 199 mg/dL 04/08/2016 12:37 PM CDT [facility] TRIGLYCERIDES 73 <150 mg/dL 04/08/2016 12:37 PM CDT [facility] HDL CHOLESTEROL 51 >40 mg/dL 04/08/2016 12:37 PM CDT [facility] NON-HDL CHOLESTEROL 138 <145 mg/dl 04/08/2016 12:37 PM CDT [facility] CHOL/HDL RATIO 3.71 <4.50 04/08/2016 12:37 PM CDT [facility] LDL CHOLESTEROL 123 <=130 mg/dL 04/08/2016 12:37 PM CDT [facility] PATIENT STATUS NON-FASTI NG 04/08/2016 12:37 PM CDT [facility] Blood BLOOD SPECIMEN / Unknown Venipuncture / Unknown 04/08/2016 11:38 AM CDT 04/08/2016 11:38 AM CDT Yannick Garnett MD CHEMISTRY [facility] [address] [place] [address], from Last 3 Months or Most Recently Relevant to Health Maintenance Advance Directives * Full Code (Latest Code Status on File) Date Activated Date Inactivated Comments 06/24/2014 7:19 AM 06/24/2014 5:00 PM Care Teams Blending Machine Operator Relationship Specialty Start Date End Date Kumar Raymond MD [address] [place] [phone] PCP - General Family Practice 11/17/17
== END 2024-06-04 14:06 | disposition home or self-care (01) ==
PROVIDERS: PCP Family Medicine; Visit Provider Family Medicine
DX: N30.00 Acute cystitis without hematuria (principal); I10 Essential (primary) hypertension; Z95.2 Presence of prosthetic heart valve; Z79.01 Long term (current) use of anticoagulants; Z11.59 Encounter for screening for other viral diseases
CPT/HCPCS: 80053; 85610; 86803; 87086

== ENCOUNTER 2024-06-11 10:37 | Outpatient (CLI) | payer MEDICARE, SELFPAY ==
--- OUTSIDE RECORDS SUMMARY | 2024-06-11 10:40 | XMS_ITS | Clinical Summary ---
Author Organization [facility] Address [address] [place] [address] Care Team Providers Care Apartment Leasing Agent Name Role Phone Elsewhere, Pcp Primary Care Provider Unavailabl e Source Comments Patient records contain information from all sites at [facility]. For routine questions regarding patient records, call [phone] during business hours, M-F 8:00 AM - 5:00 PM Central Time. Record requests for emergency care only can be directed to [phone] at any time.[facility] Allergies Active Allergy Reactions Criticality Noted Date [...] (07/17/2019): Added automatically from request for surgery [id number] Palpitations 06/25/2019 Obstructive Sleep Apnea Adult 05/31/2019 Dysfunction Erectile 05/31/2019 Deconditioned 05/31/2019 Anticoagulant Therapy 03/18/2019 Overview (03/18/2019): INR goal: 2.0 - 3.0 Warfarin duration and indication: Aortic mechanical valve replacement requires life-long anticoagulation therapy. After 3 months, however, you can reduce your INR goal to 1.5-2.5. This needs to be discussed with your primary care provider/high school vice principal to rule out contraindications before changing the INR goal. Replace Aorta With Conduit Prosthetic Valve 01/2019 Overview (03/18/2019): 03/16/[address] Espionza Aortic root replacement using 25-millimeter On-X sinus of Valsalva mechanical valve conduit with left and right coronary button transfer. Resolved Problems Problem Noted Date Diagnosed Date Resolved Date Stenosis Aortic Valve Acquired 03/16/2019 03/18/2019 Encounters Date Type Department Care Team Description 06/07/2024 11:56 AM CDT - 06/07/2024 11:59 PM CDT Hospital Encounter Department of Radiology in [address] [address] Mckinley Loredo M.D. Replace Aorta With Conduit Prosthetic Valve Discharge Disposition: Home or Self Care 06/07/2024 11:55 AM CDT Hospital Encounter Department of Laboratory Medicine in [address] [phone] Mckinley Loredo M.D. Replace Aorta With Conduit Prosthetic Valve Discharge Disposition: Home or Self Care from [...] pur e alcohol) 1 wine per month [facility] Utilities Answer Date Recorded In the past 12 months has [employer], gas, oil, or water company threatened to shut off services in your home? No 10/24/2023 Social Connection and Isolation Panel [NHANES] A nswer Date Recorded In a typical week, how many times do you talk on the phone with family, friends, or neighbors? Twice a week 03/06/2020 Frequency of Social Gatherings with Friends and Family Not on file 03/06/2020 Attends Jehovah'S Witness Services Not on file 03/06 Active Member [...] medical care, and heating? Somewhat hard 03/06/2020 [facility] of Occupat ional Health - Occupational Stress [...] your living situation today? I have a [facility] place to live 10/24/2023 Education Answer Date Recorded What is the highest level of school you have completed or the highest degree you have received? 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 [employer] Last Filed Vital Signs Vital Sign Reading Time Taken Comments Blood Pressure 161/96 01/18/2024 1:36 PM CDT Pulse 70 01/18/2024 1:34 PM CDT Temperature 36.4 ??C (97.5 ??F) 01/18/2024 1:34 PM CD T Respiratory Rate 16 08/13/2020 1:30 PM BRAKE LINING FINISHER [employer] Oxygen Saturation 94% 01/18/2024 1:34 PM CDT Inhaled Oxygen Concentration - - Weight 96.6 kg (212 lb 15.4 oz) 01/18/2024 1:34 PM CDT Height 176 cm (5' 9.29) 08/13/2020 1:30 PM BRAKE LINING FINISHER [employer] Body Mass Index 31.19 08/13/2020 1:30 PM BRAKE LINING FINISHER [employer] Plan of Treatment Upcoming Encounters Date Type Department Care Team (Latest Contact Info) Description 06/13/2024 11:45 AM CDT Office Visit Department of Cardiovascular Diseases in [address] [phone] Mckinley Loredo M.D. [address] [place] [phone] Discharge Disposition: Home or Self Care Health Maintenance Due Date Last Done Comments Abdominal Aortic Aneurysm (A AA) Screen 1959 CT Colonography 1959 Cologuard 1959 Colonoscopy 1959 Colorectal Cancer Screening 1959 FIT 1959 HIV Screening 1959 Hepatitis C Screening 1959 Zoster Vaccines (1 of 2) 2009 Depression Screening (Annual PHQ-2) 09/12/2023 Fall Risk Screen (Annual) 2024 Office Visit for Blood Press ure Check / Re-check 04/19/2024 01/18/2024 COVID-19 Vaccine (5 - 2023-2 5 season) 2024 07/18/2022, 08/24/2021, 12/24/2020, Additional history exists Influenza Vaccine (#1) 2024 3, 07/18/2022, 07/06/2021, Additional history exists Fasting Glucose for Diabetes Screening 06/07/2027 06/07/2024, 03/21/2019, 03/20/2019, Additional history exists DTaP,Tdap,and Td Vaccines (3 - Td or Tdap) 07/24/2030 07/24/2020, 09/17/2010, 12/04/2002 Pneumococcal vaccine (65+ years) Completed 06/04/20 24 Medical Devices Implanted Type Area Health Care Attorney Device Identifier Shelf Expiration Date Model / Serial / Lot Vlv Aort [facility] 25 - [id number] - [id number] Implanted:Qty : 1 on 03/16/2019 by Goran Espinoza M.D. at [facility] Cardiac Valve Prosthesis Left: Heart [employer] 12/11/2021 [id number]-2 [id number] / Description:Aortic Valve Pos ition (Composite Graft included) Tb Vnt Drv Twin 1.27x1.37x4.5 - [id number] Implanted:Qty : 1 on 08/28/2019 by Peter Spear M.D. at [facility] Ear Tubes (e.g. PE Tubes) [employer] [id number] / / Tb Vnt Drv Twin 1.27x1.37x4.5 - [id number] Implanted:Qty : 1 on 08/28/2019 by Peter Spear M.D. at [facility] Ear Tubes (e.g. PE Tubes) [employer] [id number] / / Sut Fast Crk Qck Ld Sut Fast - [id number] Implanted:Qty : 6 on 03/16/2019 by Goran Espinoza M.D. at [facility] Hardware e.g. pins/screws/r ods Left: Heart [email or web address] [id number] / / Description:W/ Aortic Valve Prosthetic Sut Fast Crk Qck Ld Sut Fast - [id number] Implanted:Qty : 6 on 03/16/2019 by Goran Espinoza M.D. at [facility] Hardware e.g. pins/screws/r ods Left: Heart [employer] [id number] / / Description:W/ Aortic Valve Prosthetic Dev Crk Sut Blunt Crv - [id number] Implanted:Qty : 1 on 03/16/2019 by Goran Espinoza M.D. at [facility] Hardware e.g. pins/screws/r ods Left: Heart [employer] [id number] 12/10/2020 [id number] / / [id number] Description:W/ Aortic Valve Prosthetic Dev Crk Sut Blunt Crv - [id number] Implanted:Qty : 1 on 03/16/2019 by Goran Espinoza M.D. at [facility] Hardware e.g. pins/screws/r ods Left: Heart [employer] [id number] 12/10/2020 [id number] / / [id number] Description:W/ Aortic Valve Prosthetic Dev Crk Sut Blunt Crv - [id number] Implanted:Qty : 1 on 03/16/2019 by Goran Espinoza M.D. at [facility] Hardware e.g. pins/screws/r ods Left: Heart [employer] [id number] 12/10/2020 [id number] / / [id number] Description:W/ Aortic Valve Prosthetic Procedures Procedure Name Priority Date/Time Associated Diagnosis Comments (TTE) 2D ECHO DOPPLER COLOR Routine 06/07/2024 12:53 PM CDT Replace Aorta With Conduit Prosthetic Valve BASIC METABOLIC PANEL, S/P Routine 06/07/2024 12:04 PM CDT Replace Aorta With Conduit Prosthetic Valve from Last 3 Months Results * (TTE) 2D ECHO DOPPLER COLOR (06/07/2024 12:53 PM CDT) [facility] Ejection Fraction 57 MC CV EIMS MV E Velocity 1 MC CV EIMS MV A Velocity 1.1 MC CV EIMS MV E/A 0.91 MC CV EIMS MV e' Velocity Lateral 0.11 MC CV EIMS MV E/e' Lateral 9.1 MC CV EIMS Left ventricular stroke volume index 48 MC CV EIMS Cardiac Output 7.19 MC CV EIMS Cardiac Index 3.38 MC CV EIMS TR Vmax 2.36 MC CV EIMS RA Pressure 5 MC CV EIMS RV Systolic Pressure 27 MC CV EIMS AV mean gradient 9 MC CV EIMS Aortic valve area 2.82 MC CV EIMS Aortic Valve Area Index 1.33 MC CV EIMS Aortic Valve Dimensionless Index 0.62 MC CV EIMS Aortic Valve Systolic Peak Velocity 2.1 MC CV EIMS Anatomical Region Laterality Modality Echocardiography 06/07/2024 12:0 2 PM CDT Impressions 06/07/2024 1:44 PM CDT There are thin, filamentous, mobile echodensities on the ventricular aspect of the aortic prosthesis as previously noted. Transthoracic outreach echo interpretation. Echocardiogram performed per left ventricular function protocol. Last full echocardiogram performed 11/01/2023. Status post aortic root replacement with 25 mm On-X mechanical aortic valve conduit (16-MAR-2019). LEFT VENTRICLE:Normal left ventricular chamber size. Anomalous left ventricular chord. Calculated 2-D monoplane volumetric left ventricular ejection fraction 57%. No regional wall motion abnormalities. Indeterminate left ventricular filling pressure. RIGHT VENTRICLE:Normal right ventricular chamber size. Normal right ventricular systolic function. Estimated right ventricular systolic pressure 27 mmHg (right atrial pressure of 5 mmHg). ATRIA:Normal left atrial size by visual estimate. Normal right atrial size. CARDIAC VALVES:Status post 25 mm On-X mechanical aortic valve prosthesis. Normal aortic valve mechanical prosthesis. Aortic valve prosthesis systolic mean Doppler gradient 9 mmHg. Aortic valve prosthetic orifice area by Doppler: 2.82 cm2 Trivial (normal washing jets) aortic valve prosthetic regurgitation. No aortic valve periprosthetic regurgitation. Mildly thickened mitral valve. Trivial mitral valve regurgitation. Normal tricuspid valve. Trivial tricuspid valve regurgitation. OTHER ECHO FINDINGS:Normal inferior vena cava size with normal inspiratory collapse (>50%). No intracardiac mass or thrombus, but the left atrial appendage cannot be visualized adequately with transthoracic echo to exclude thrombus in this location. No ?? pericardial effusion. For the complete report, see the Order-Level Documents. Narrative 06/07/2024 1:44 PM CDT For the complete report, see the Order-Level Documents. Hemodynamics Heart Rate: 70 BPM Blood Pressure: 118 / 80 mmHg ECG: Sinus rhythm Final Impressions 1. Normal left ventricular chamber size, no regional wall motion abnormalities, calculated 2-D monoplane volumetric ejection fraction 57%. 2. Normal right ventricular chamber size, normal systolic function, estimated right ventricular systolic pressure 27 mmHg (right atrial pressure of 5 mmHg). 3. Status post aortic root replacement with 25 mm On-X mechanical aortic valve conduit (16-MAR-2019). 4. Normal aortic valve mechanical prosthesis, prosthesis systolic mean Doppler gradient 9 mmHg, orifice area by Doppler:2.82 cm2. 5. Compared to the report of 11/01/2023 no significant change has occurred. Procedure Note Mckinley Loredo M.D. - 06/07/2024 For the complete report, see the Order-Level Documents. Hemodynamics Heart Rate: 70 BPM Blood Pressure: 118 / 80 mmHg ECG: Sinus rhythm Final Impressions 1. Normal left ventricular chamber size, no regional wall motionabnormalities, calculated 2-D monoplane volumetric ejection [id number]%. 2. Normal right ventricular chamber size, normal systolic function,estimated right ventricular systolic pressure 27 mmHg (right atrialpressure of 5 mmHg). 3. Status post aortic root replacement with 25 mm On-X mechanical aorticvalve conduit (16-MAR-2019). 4. Normal aortic valve mechanical prosthesis, prosthesis systolic meanDoppler gradient 9 mmHg, orifice area by Doppler:2.82 cm2. 5. Compared to the report of 11/01/2023 no significant change hasoccurred. Findings There are thin, filamentous, mobile echodensities on the ventricularaspect of the aortic prosthesis as previously noted. Transthoracicoutreach echo interpretation. Echocardiogram performed per leftventricular function protocol. Last full echocardiogram [id number]/20/2024. Status post aortic root replacement with 25 mm On-X mechanicalaortic valve conduit (16-MAR-2019). LEFT VENTRICLE:Normal left ventricular chamber size. Anomalous leftventricular chord. Calculated 2-D monoplane volumetric left ventricularejection fraction 57%. No regional wall motion abnormalities.Indeterminate left ventricular filling pressure. RIGHT VENTRICLE:Normal right ventricular chamber size. Normal rightventricular systolic function. Estimated right ventricular systolicpressure 27 mmHg (right atrial pressure of 5 mmHg). ATRIA:Normal left atrial size by visual estimate. Normal right atrialsize. CARDIAC VALVES:Status post 25 mm On-X mechanical aortic valve prosthesis.Normal aortic valve mechanical prosthesis. Aortic valve prosthesissystolic mean Doppler gradient 9 mmHg. Aortic valve prosthetic orificearea by Doppler: 2.82 cm2 Trivial (normal washing jets) aortic valveprosthetic regurgitation. No aortic valve periprosthetic regurgitation.Mildly thickened mitral valve. Trivial mitral valve regurgitation. Normaltricuspid valve. Trivial tricuspid valve regurgitation. OTHER ECHO FINDINGS:Normal inferior vena cava size with normal inspiratorycollapse (>50%). No intracardiac mass or thrombus, but the left atrialappendage cannot be visualized adequately with transthoracic echo toexclude thrombus in this location. No pericardial effusion. For the complete report, see the Order-Level Documents. Mckinley Loredo M.D. CV ECHO PROCEDURES * (ABNORMAL) Basic Metabolic Panel (06/07/2024 12:04 PM CDT) [facility] Potassium, P 3.8 3.6 - 5.2 mmol/L 06/07/2024 12:27 PM CDT CNFL Sodium, P 137 135 - 145 mmol/L 06/07/2024 12:27 PM CDT CNFL Chloride, P 102 98 - 107 mmol/L 06/07/2024 12:27 PM CDT CNFL Bicarbonate, P 25 22 - 29 mmol/L 06/07/2024 12:27 PM CDT CNFL Anion Gap, P 10 7 - 15 06/07/2024 12:27 PM CDT CNFL BUN (Blood Urea Nitrogen), P 20 8 - 24 mg/dL 06/07/2024 12:27 PM CDT CNFL Creatinine 1.10 0.74 - 1.35 mg/dL 06/07/2024 12:27 PM CDT CNFL Estimated GFR (eGFR) 74 >=60 mL/min/BSA 06/07/2024 12:27 PM CDT CNFL Comment: Estimated GFR calculated using the 2020 CKD_EPI creatinine equation. Calcium, Total, P 9.1 8.8 - 10.2 mg/dL 06/07/2024 12:27 PM CDT CNFL Glucose, P 178(H) 70 - 140 mg/dL 06/07/2024 12:27 PM CDT CNFL Blood (Blood, Venous) 06/07/2024 12:04 PM CDT 06/07/2024 12:07 PM CDT Mckinley Loredo M.D. LAB BLOOD ADD-ON [facility] [address] [place] [id number], [facility] CNFL [facility] in [address] [address] from Last 3 Months Advance Directives For more information, please contact: [phone] * Full Code (Latest Code Status on File) Date Activated Date Inactivated Comments 03/16/2019 1:51 PM 03/21/2019 3:22 PM Question Answer Comments Full Code: Discussed Care Teams Apartment Leasing Agent Relationship Specialty Start Date End Date Elsewhere, Pcp PCP - General Internal Medicine 03/21/19
--- OUTSIDE RECORDS SUMMARY | 2024-06-11 10:40 | XMS_ITS | Encounter Summary ---
Author Organization [facility] Address [address] [place] [address] Care Team Providers Care Leather Lacer Name Role Phone Elsewhere, Pcp Primary Care Provider Unavailabl e Encounter Details Date Type Department Care Team (Latest Contact Info) Description 06/07/2024 11:55 AM CDT Hospital Encounter Department of Laboratory Medicine in [address] [phone] Mckinley Loredo M.D. [address] [place] [address] Replace Aorta With Conduit Prosthetic Valve Discharge Disposition: Home or Self Care Social History Tobacco Use Types Packs/Day Years Used Date Smoking Tobacco: Former Cigarettes Q uit: 1990 Smokeless Tobacco: Never Alcohol Use Standard Drinks/Week Comments Not Currently 0 (1 standard drink = 0.6 oz pur e alcohol) 1 wine per month [facility] Utilities Answer Date Recorded In the past 12 months has e [employer], gas, oil, or water [employer] threatened to shut off services in your home? No 10/24/2023 Social Connection and Isolation Panel [NHANES] A nswer Date Recorded In a typical week, how many times do you talk on the phone with family, friends, or neighbors? Twice a week 03/06/2020 Frequency of Social Gatherings with Friends and Family Not on file 03/06/2020 Attends Faith Services Not on file 03/06 Active Member [...] medical care, and heating? Somewhat hard 03/06/2020 [facility] - Occupational Stress Questionnaire Answer Date [...] your living situation today? I have a [facility] place to live 10/24/2023 Education Answer Date Recorded What is the highest level of school you have completed or the highest degree you have received? 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 10/10/2023 amLODIPine (NORVASC) 5 mg tablet Take 1 tablet (5 mg total) by mouth daily. 90 tablet 3 02/10/2024 02/09/2025 amoxicillin (AMOXIL) 500 mg capsuleIndications: Replace Aorta With Conduit Prosthetic Valve Take 4 caps (2000 mg) 1 hour prior to procedure. 12 capsule 1 04/16/2020 buPROPion XL (WELLBUTRIN XL) 150 mg 24 hr tablet Take 150 mg by mouth every morning. 1 01/12/2019 buPROPion XL (Wellbutrin XL) 150 mg 24 hr tablet Take 150 mg by mouth daily. 10/10/2023 celecoxib (CeleBREX) 200 mg capsule Take 200 mg by mouth daily. 10/10/2023 FLUoxetine (PROzac) 20 mg capsule Take 60 mg by mouth daily. 07/29/2020 FLUoxetine (PROzac) 40 mg capsule Take 40 mg by mouth daily. 10/10/2023 hydroCHLOROthiazide (HYDRODIURIL) 25 mg tablet Take 1 tablet (25 mg total) by mouth daily. 30 tablet 11 01/18/2024 omeprazole (PriLOSEC) [address] capsule Take 20 mg by mouth every morning before breakfast. rosuvastatin (CRESTOR) 10 mg tablet Take 10 mg by mouth daily. 10/10/2023 testosterone enanthate (DELATESTRYL) 200 mg/mL injection Inject 200 mg intramuscularly every 14 (fourteen) days. 2 11/04/2018 testosterone enanthate (DELATESTRYL) 200 mg/mL injection Inject 1,000 mg intramuscularly every 30 (thirty) days. 10/10/2023 warfarin (COUMADIN) 6 mg tablet TAKE INSTRUCTED HEAD 6 MG, M 9 MG, TU 6 MG, W 6 MG, TH 9 MG, F 6 MG, SA 6 MG 06/05/2020 warfarin (JANTOVEN) 6 mg tablet Take 3 mg by mouth. 9 mg Sat and Tues, 6 mg all other days 08/09/2023 documented as of this encounter Plan of Treatment Upcoming Encounters Date Type Department Care Team (Latest Contact Info) Description 06/13/2024 11:45 AM CDT Office Visit Department of Cardiovascular Diseases in [address] [phone] Mckinley Loredo M.D. [address] [place] [phone] Discharge Disposition: Home or Self Care documented as of this encounter Procedures Procedure Name Priority Date/Time Associated Diagnosis Comments BASIC METABOLIC PANEL, S/P Routine 06/07/2024 12:04 PM CDT Replace Aorta With Conduit Prosthetic Valve documented in this encounter Results * (ABNORMAL) Basic Metabolic Panel (06/07/2024 12:04 PM CDT) Potassium, P 3.8 3.6 - 5.2 mmol/L [...] CNFL Comment: Estimated GFR calculated using the 2021 CKD_EPI creatinine equation. Calcium, Total, P 9.1 8.8 - 10.2 mg/dL 06/07/2024 12:27 PM CDT CNFL Glucose, P 178(H) 70 - 140 mg/dL 06/07/2024 12:27 PM CDT CNFL Blood (Blood, Venous) 06/07/2024 12:04 PM CDT 06/07/2024 12:07 PM CDT Mckinley Loredo M.D. LAB BLOOD ADD-ON [facility] [address] [place] [address], [facility] CNFL [facility] in [address] [phone] documented in this encounter Visit Diagnoses Diagnosis Replace Aorta With Conduit Prosthetic Valve documented in this encounter Care Teams Leather Lacer Relationship Specialty Start Date End Date Elsewhere, Pcp PCP - General Internal Medicine 03/21/19 documented as of this encounter
--- OUTSIDE RECORDS SUMMARY | 2024-06-11 10:40 | XMS_ITS | Encounter Summary ---
Author Organization [facility] Address [address] [place] [id number] Care Team Providers Care Associate Editor Name Role Phone Elsewhere, Pcp Primary Care Provider Unavailabl e Reason for Referral * Cardiovascular-Diagnostic (Routine) - Closed Specialty Diagnoses / Procedures Referred By Patti pelayo Referred To Contact Diagnoses Replace Aorta With Conduit Prosthetic Valve Procedures Echo Transthoracic (TTE) Mckinley Loredo M.D. [address] [place] [address] [facility] Referral ID Status Reason Start Date Expiration Date Visits Re quested Visits Authorized [id number] Closed 01/18/2024 01/17/2025 1 1 Reason for Visit * Cardiovascular-Diagnostic (Routine) - Closed Specialty Diagnoses / Procedures Referred By Patti pelayo Referred To Contact Diagnoses Replace Aorta With Conduit Prosthetic Valve Procedures Echo Transthoracic (TTE) Mckinley Loredo M.D. [address] [place] [address] [facility] Referral ID Status Reason Start Date Expiration Date Visits Re quested Visits Authorized [id number] Closed 01/18/2024 01/17/2025 1 1 Encounter Details Date Type Department Care Team (Latest Contact Info) Description 06/07/2024 11:56 AM CDT - 06/07/2024 11:59 PM CDT Hospital Encounter Department of Radiology in [address] [phone] Mckinley Loredo M.D. [address] [place] [address] Replace Aorta With Conduit Prosthetic Valve Discharge Disposition: Home or Self Care Social History Tobacco Use Types Packs/Day Years Used Date Smoking Tobacco: Former Cigarettes Q uit: 1990 Smokeless Tobacco: Never Alcohol Use Standard Drinks/Week Comments Not Currently 0 (1 standard drink = 0.6 oz pur e alcohol) 1 wine per month [facility] Utilities Answer Date Recorded In the past [...] and Family Not on file 03/06/2020 Attends [employer] Not on file 03/06 Active Member [...] medical care, and heating? Somewhat hard 03/06/2020 [facility] of Occupat ional Health - Occupational Stress [...] your living situation today? I have a [facility] place to live 10/24/2023 Education Answer Date Recorded What is the highest level of school you have completed or the highest degree you have received? Associate degree: occupational, technical, or vocational program 03/06/2020 Sex and Gender Information Value Date Recorded Sex Assigned at Male 07/17/2019 7:45 AM TWISTER TENDER Gender Identity Male 03/05/2019 1:37 PM CDT Sexual Orientation Choose not to disclose 2018 7:45 AM TWISTER TENDER documented as of this encounter Medications at [...] Office Visit Department of Cardiovascular Diseases in [place] [address] [place] [address] Mckinley Loredo M.D. [address] [place] [phone] Discharge Disposition: Home or Self Care documented as of this encounter Procedures Procedure Name Priority Date/Time Associated Diagnosis Comments (TTE) 2D ECHO DOPPLER COLOR Routine 06/07/2024 12:53 PM CDT Replace Aorta With Conduit Prosthetic Valve documented in this encounter Results * (TTE) 2D ECHO DOPPLER COLOR (06/07/2024 12:53 PM CDT) Ejection Fraction 57 MC CV EIMS MV [...] wall motionabnormalities, calculated 2-D monoplane volumetric ejection adiphayz67%. 2. Normal right ventricular chamber size, normal [...] per leftventricular function protocol. Last full echocardiogram [email or web address]/20/2024. Status post aortic root replacement with 25 [...] Documents. Mckinley Loredo M.D. CV ECHO PROCEDURES documented in this encounter Visit Diagnoses Diagnosis Replace Aorta With Conduit Prosthetic Valve documented in this encounter Care Teams Associate Editor Relationship Specialty Start Date End Date Elsewhere, Pcp PCP - General Internal Medicine 03/21/19 documented as of this encounter
--- OUTSIDE RECORDS SUMMARY | 2024-06-11 10:40 | XMS_ITS | Clinical Summary ---
Author Organization [facility] Address [place], [place] [address] Care Team Providers Care Drying Frame Operator Name Role Phone Kumar Raymond MD Primary Care Provider [phone] Allergies Active Allergy Reactions Criticality Noted Date [...] 1 - PCV) 2024 COVID-19 vaccine series ( - 2023- season) 2024 Influenza for age 65+ 05/13/2024 08/04/2015 , 09/02/2014, 09/06/2003 Tdap Completed 09/17/2010 Procedures Procedure Name Priority Date/Time Associated Diagnosis Comments LIPID PANEL Routine 04/08/2016 11:38 AM CDT Mixed hyperlipidemia from Last 3 Months or Most Recently Relevant to Health Maintenance Results * LIPID PANEL (04/08/2016 11:38 AM CDT) CHOLESTEROL,TOTAL 189 100 - 199 mg/dL 04/08/2016 12:37 PM CDT [facility] TRIGLYCERIDES 73 <150 mg/dL 04/08/2016 12:37 PM CDT [facility] HDL CHOLESTEROL 51 >40 mg/dL 04/08/2016 12:37 PM CDT [facility] NON-HDL CHOLESTEROL 138 <145 mg/dl 04/08/2016 12:37 PM CDT [facility] CHOL/HDL RATIO 3.71 <4.50 04/08/2016 12:37 PM CDT [facility] LDL CHOLESTEROL 123 <=130 mg/dL 04/08/2016 12:37 PM CDT [facility] PATIENT STATUS NON-FASTI NG 04/08/2016 12:37 PM CDT [facility] Blood BLOOD SPECIMEN / Unknown Venipuncture / Unknown 04/08/2016 11:38 AM CDT 04/08/2016 11:38 AM CDT Yannick Garnett MD CHEMISTRY [facility] [address] [place] [address], from Last 3 Months or Most Recently Relevant to Health Maintenance Advance Directives * Full Code (Latest Code Status on File) Date Activated Date Inactivated Comments 06/24/2014 7:19 AM 06/24/2014 5:00 PM Care Teams Drying Frame Operator Relationship Specialty Start Date End Date Kumar Raymond MD [address] [place] [address] PCP - General Family Practice 11/17/17
--- OUTSIDE RECORDS SUMMARY | 2024-06-11 10:40 | XMS_ITS | Referral Summary ---
Author Organization [facility] Address [address] [place] [address] Care Team Providers Care Lens Examiner Name Role Phone Elsewhere, Pcp Primary Care Provider Unavailabl e Source Comments Patient records contain information from all sites at [facility]. For routine questions regarding patient records, call [phone] during business hours, M-F 8:00 AM - 5:00 PM Central Time. Record requests for emergency care only can be directed to [phone] at any time.[facility] Encounters Date Type Department Care Team Description 06/07/2024 11:55 AM T Hospital Encounter Department of Laboratory Medicine in [address] [address] Mckinley Loredo M.D. Replace Aorta With Conduit Prosthetic Valve Discharge Disposition: Home or Self Care 06/07/2024 11:56 AM CDT - 06/07/2024 11:59 PM CDT Hospital Encounter Department of Radiology in [address] [phone] Mckinley Loredo M.D. Replace Aorta With Conduit [...] (07/17/2019): Added automatically from request for surgery [id number] Palpitations 06/25/2019 Obstructive Sleep Apnea Adult 05/31/2019 Dysfunction Erectile 05/31/2019 Deconditioned 05/31/2019 Anticoagulant Therapy 03/18/2019 Overview (03/18/2019): INR goal: 2.0 - 3.0 Warfarin duration and indication: Aortic mechanical valve replacement requires life-long anticoagulation therapy. After 3 months, however, you can reduce your INR goal to 1.5-2.5. This needs to be discussed with your primary care provider/bolt cutter to rule out contraindications before changing the [...] Cigarettes Q uit: 1991 Smokeless Tobacco: Never Tobacco Cessation:Counseling Given: Not Answered Alcohol Use Standard Drinks/Week Comments Not Currently 0 (1 standard drink = 0.6 oz pur e alcohol) 1 wine per month [facility] Utilities Answer Date Recorded In the [...] and Family Not on file 03/06/2020 Attends Buddhism Services Not on file 03/06 Active Member [...] medical care, and heating? Somewhat hard 03/06/2020 [facility] - Occupational [...] your living situation today? I have a [facility] place to live 10/24/2023 Education Answer Date Recorded What is the highest level of school you have completed or the highest degree you have received? Associate degree: occupational, technical, or vocational program 03/06/2020 Sex and Gender Information Value Date Recorded Sex Assigned at Male 07/17/2019 7:45 AM UNDERWRITING DIRECTOR Gender Identity Male 03/05/2019 1:37 PM CDT Sexual Orientation Choose not to disclose 2018 7:45 AM UNDERWRITING DIRECTOR Last Filed Vital Signs Vital Sign Reading Time Taken Comments Blood Pressure 161/96 01/18/2024 1:36 PM CDT Pulse 70 01/18/2024 1:34 PM CDT Temperature 36.4 ??C (97.5 ??F) 01/18/2024 1:34 PM CD T Respiratory Rate 16 08/13/2020 1:30 PM UNDERWRITING DIRECTOR Oxygen Saturation 94% 01/18/2024 1:34 PM CDT Inhaled Oxygen Concentration - - Weight 96.6 kg (212 lb 15.4 oz) 01/18/2024 1:34 PM CDT Height 176 cm (5' 9.29) 08/13/2020 1:30 PM UNDERWRITING DIRECTOR Body Mass Index 31.19 08/13/2020 1:30 PM UNDERWRITING DIRECTOR Plan of Treatment Upcoming Encounters Date Type Department Care Team (Latest Contact Info) Description 06/13/2024 11:45 AM CDT Office Visit Department of Cardiovascular Diseases in [address] [phone] Mckinley Loredo M.D. [address] [place] [phone] Discharge Disposition: Home or Self Care Medical Devices Implanted Type Area Inventory And Pricing Associate Device Identifier Shelf Expiration Date Model / Serial / Lot Vlv Aort [facility] 25 - [id number] - [id number] Implanted:Qty : 1 on 03/16/2019 by Goran Espinoza M.D. at [facility] Cardiac Valve Prosthesis Left: Heart [employer] 12/11/2021 ONXAAP-2 5 / [id number] / Description:Aortic Valve Pos ition (Composite Graft included) Tb Vnt Drv Twin 1.27x1.37x4.5 - [id number] Implanted:Qty : 1 on 08/28/2019 by Peter Spear M.D. at [facility] Ear Tubes (e.g. PE Tubes) [employer] Eliza [id number] / / Tb Vnt Drv Twin 1.27x1.37x4.5 - [id number] Implanted:Qty : 1 on 08/28/2019 by Peter Spear M.D. at [facility] Ear Tubes (e.g. PE Tubes) [employer] [id number] / / Sut Fast Crk Qck Ld Sut Fast - [id number] Implanted:Qty : 6 on 03/16/2019 by Goran Espinoza M.D. at [facility] Hardware e.g. pins/screws/r ods Left: Heart [employer] [id number] / / Description:W/ Aortic Valve Prosthetic Sut Fast Crk Qck Ld Sut Fast - [id number] Implanted:Qty : 6 on 03/16/2019 by Goran Espinoza M.D. at [facility] Hardware e.g. pins/screws/r ods Left: Heart [employer] [id number] / / Description:W/ Aortic Valve Prosthetic Dev Crk Sut Blunt Crv - [id number] Implanted:Qty : 1 on 03/16/2019 by Goran Espinoza M.D. at [facility] Hardware e.g. pins/screws/r ods Left: Heart [employer] [id number] 12/10/2020 [id number] / / [id number] Description:W/ Aortic Valve Prosthetic Dev Crk Sut Blunt Crv - [id number] Implanted:Qty : 1 on 03/16/2019 by Goran Espinoza M.D. at [facility] Hardware e.g. pins/screws/r ods Left: Heart [employer] [id number] 12/10/2020 [id number] / / [id number] Description:W/ Aortic Valve Prosthetic Dev Crk Sut Blunt Crv - [id number] Implanted:Qty : 1 on 03/16/2019 by Goran Espinoza M.D. at [facility] Hardware e.g. pins/screws/r ods Left: Heart [employer] [id number] 12/10/2020 [id number] / / [id number] Description:W/ Aortic Valve Prosthetic Procedures Procedure Name [...] wall motionabnormalities, calculated 2-D monoplane volumetric ejection duavvwmw01%. 2. Normal right ventricular chamber size, normal [...] per leftventricular function protocol. Last full echocardiogram hfycewjea44/20/2024. Status post aortic root replacement with 25 [...] CDT Mckinley Loredo M.D. LAB BLOOD ADD-ON [facility] [address] [place] [id number], [facility] in [address] [address] from Last 3 Months Advance Directives For more information, please contact: [phone] * Full Code (Latest Code Status on File) Date Activated Date Inactivated Comments 03/16/2019 1:51 PM 03/21/2019 3:22 PM Question Answer Comments Full Code: Discussed Care Teams Lens Examiner Relationship Specialty Start Date End Date Elsewhere, Pcp PCP - General Internal Medicine 03/21/19
--- OUTSIDE RECORDS SUMMARY | 2024-06-11 10:40 | XMS_ITS ---
Author Organization [facility] Address [address] [place] [address] Care Team Providers Care Laboratory Specialist Name Role Phone Unavailable Unavailable Unavailable Surgery Details Not on file Complications Check Surgery Details section. Procedure Estimated Blood Loss Check Surgery Details section. Procedure Findings Check Surgery Details section. Procedure Specimens Taken Check Surgery Details section.
--- OUTSIDE RECORDS SUMMARY | 2024-06-11 10:40 | XMS_ITS | Encounter Summary ---
Author Organization [facility] Address [address] [place] [address] Care Team Providers Care Electron Beam Photo Mask Maker Name Role Phone Elsewhere, Pcp Primary Care Provider Unavailabl e Reason for Visit * Reason Onset Date Comments Form Review 03/05/2024 INR Encounter Details Date Type Department Care Team (Latest Contact Info) Description 03/05/2024 Clinical Communication Department of Cardiovascular Medicine in [place], [place] [address] [place] [phone] Mckinley Loredo M.D. [address] [place] [phone] Form Review (INR) Social History Tobacco Use Types Packs/Day Years Used Date Smoking Tobacco: Former Cigarettes Q uit: 1991 Smokeless Tobacco: Never Alcohol Use Standard Drinks/Week Comments Not Currently 0 (1 standard drink = 0.6 oz pur e alcohol) 1 wine per month [facility] Utilities Answer Date Recorded In the past 12 months has [employer], gas, oil, or water 4Less threatened to shut off services in your home? No 10/24/2023 Social Connection and Isolation Panel [NHANES] A nswer Date Recorded In a typical week, how many times do you talk on the phone with family, friends, or neighbors? Twice a week 03/06/2020 Frequency of Social Gatherings with Friends and Family Not on file 03/06/2020 Attends Nondenominational Services Not on file 03/06 Active Member [...] medical care, and heating? Somewhat hard 03/06/2020 [facility] - Occupational [...] Sex Assigned at Male 07/17/2019 7:45 AM FOSTER CARE SOCIAL WORKER Gender Identity Male 03/05/2019 1:37 PM CDT Sexual Orientation Choose not to disclose 2018 7:45 AM FOSTER CARE SOCIAL WORKER documented as of this encounter Miscellaneous Notes * Telephone Encounter - Stephanie Martínez - 03/05/2024 4:13 PM CDT INR received today. Called [facility] number to ask where this needed to go. Was informed by [facility] that we didn't need to do anything with it being there was no pcp. Forwarded the INR to [facility] Primary Care Nurses documented in this encounter Plan of Treatment Upcoming Encounters Date Type Department Care Team (Latest Contact Info) Description 06/13/2024 11:45 AM CDT Office Visit Department of Cardiovascular Diseases in [address] [phone] Mckinley Loredo M.D. [address] [place] [phone] Discharge Disposition: Home or Self Care documented as of this encounter Visit Diagnoses Not on filedocumented in this encounter Care Teams Electron Beam Photo Mask Maker Relationship Specialty Start Date End Date Elsewhere, Pcp PCP - General Internal Medicine 03/21/19 documented as of this encounter
--- NOTE | 2024-06-11 10:45 | CRLHL7_ITS ---
For Patients: As a result of the Cures Act, medical imaging exams and procedure reports are released immediately into your electronic medical record. You may view this report before your referring provider. If you have questions, please contact your health care provider. Examination: US abdominal aorta Indication: Abdominal aortic aneurysm screening. Technique: De La Cruz scale and color Doppler images of the aorta and common iliac arteries are obtained. Comparison: None Findings: Proximal aorta: 2.5 x 2.5 cm Mid aorta: 2.0 x 2.4 cm Distal aorta: 1.8 x 2.0 cm Right common iliac artery: 1.0 x 0.9 cm Left common iliac artery: 1.0 x 0.9 cm Impression: No abdominal aortic aneurysm. Dictated by Lorenzo Crawford MD @ 06/11/2024 11:41:43 AM (Electronically Signed)
== END 2024-06-11 10:38 | disposition home or self-care (01) ==
PROVIDERS: PCP Family Medicine; Visit Provider Family Medicine
DX: Z13.6 Encounter for screening for cardiovascular disorders (principal)
CPT/HCPCS: 76775

== ENCOUNTER 2024-10-01 11:05 | Outpatient (CLI) | payer MEDICARE, SELFPAY | END 2024-10-01 11:06 | disposition home or self-care (01) | LOC: NFLDREF 10-03 01:37 | PROVIDERS: PCP Family Medicine; Referring Provider Family Medicine; Visit Provider Family Medicine | DX: E78.5 Hyperlipidemia, unspecified (principal); E29.1 Testicular hypofunction; Z95.2 Presence of prosthetic heart valve; Z79.01 Long term (current) use of anticoagulants; Z12.5 Encounter for screening for malignant neoplasm of prostate | CPT/HCPCS: 80053; 80061; 84403; G0103 ==

== ENCOUNTER 2025-03-07 10:45 | Outpatient (RCR) | payer MEDICARE, SELFPAY ==
--- NOTE | 2025-01-17 15:37 | PT.OPEX ---
PT [facility] Outpatient Eval PT LD Outpatient Eval Start: 01/17/25 07:37 Freq: Status: Active Protocol: Document 01/17/25 07:38 CRP (Rec: 01/17/25 10:49 CRP [id number]) E-signed By Israel Wadsworth PT Physical Therapy Outpatient Evaluation Insurance Information Recert Due Date 04/17/25 Insurance Name Medicare B Medical Diagnosis Lumbar radiculopathy Referring MD Colette De Los Santos MOCCASIN SEWER Subjective Subjective Pt c.o pain L low back, L hip and down L hamstring. Aching pain that travels down the leg and feels more like bruising pain. Sleep can be difficult and cannot sleep on L side. Is OK on R side. Started late Oct and not sure what caused it. Pain increases with sitting, strenuous walking or longer term slow walking, stair climbing, bending, lifting. 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 Work tasks can increase his pain. No numbness or tingling. Has noticed some weakness trying to boost up into truck. Otherwise no noted weakness. Did try personal care worker which did not seem to help much. Did also try muscle relaxer which maybe helped to some degree. 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 Palpation: palpable pain L gluteus med and min Assessment Assessment/Impression Pt presents to the clinic with c/o L sided LBP and L LE pain that appears secondary to lumbar spine segmental dysfunction, myofascial involvement of the lumbar spine into the gluteals, and L hip mobility dysfunction with associated weakness. Skilled PT is necessary to incorporate ther ex, nm keerthi, manual therapy and pt education to decrease pain and improve functional mobility. Primary Functional Limitations Sitting Lifting Carrying Work tasks Sleep Plan of Care Rehabilitation Potential Excellent Physical Therapy Goals 1. Pt will be independent with HEP in 8 weeks. 2. Pt will sit as needed when driving without pain in 10 weeks. 3. Pt will sleep through the night without pain in 12 weeks . Coordination/Communication With Referral Source Treatment Plan/Direct Interventions Joint Mobilization,Manual Therapy,Neuromuscular Re-ed, Self-Care/Home Management, Therapeutic Activities, Therapeutic Exercises Frequency/Duration 1-2x/wk for 12 weeks Patient Will Be Discharged From Therapy Completion of LTG(s),Skills Plateau,Independent w/HEP, Independently Progressing Evaluation Billing Untimed Code Treatment Minutes 45 Complexity Moderate Certification Information Initial Certification Date 01/17/25 Ending Certification Date 04/17/25 Provider Signature Required Yes Provider Signature Shows Agreement With POC & Medical Necessity Physician NPI Number Write NPI# Here Physician Comment/Change : Physician Signature & Date Requested Please Sign/Date Here
== END 2025-07-05 23:59 | disposition home or self-care (01) ==
PROVIDERS: PCP Family Medicine; Visit Provider Registered Nurse
DX: M54.16 Radiculopathy, lumbar region (principal); Z51.89 Encounter for other specified aftercare
CPT/HCPCS: 97110; 97140; 97162; 97530

== ENCOUNTER 2025-03-25 10:12 | Outpatient (CLI) | payer MEDICARE, SELFPAY | END 2025-03-25 10:13 | disposition home or self-care (01) | LOC: NFLDREF 03-27 03:48 | PROVIDERS: PCP Family Medicine; Referring Provider Family Medicine; Visit Provider Family Medicine | DX: Z79.01 Long term (current) use of anticoagulants (principal); Z95.2 Presence of prosthetic heart valve | CPT/HCPCS: 85610 ==

== ENCOUNTER 2025-07-01 11:32 | Outpatient (CLI) | payer MEDICARE, SELFPAY | END 2025-07-01 11:33 | disposition home or self-care (01) | LOC: NFLDREF 07-03 19:07 | PROVIDERS: PCP Family Medicine; Referring Provider Family Medicine; Visit Provider Internal Medicine | DX: R39.15 Urgency of urination (principal) | CPT/HCPCS: 87086 ==